=== PATIENT | female | born 1970 | race Caucasian/White ===

== ENCOUNTER 2022-06-27 16:48 | Inpatient (IN) | payer BC ==
[~2022-06-27] VITALS: Ht 153.7 cm; Wt 61.0 kg
[2022-06-27] MEDS ORDERED: ACETAMINOPHEN 500 MG TABLET PO ONE (17:15)
[2022-06-27] MEDS ORDERED: MORPHINE SULFATE 2 MG/ML SYRINGE IVP ONE (17:15)
[2022-06-27] MEDS ORDERED: FAMOTIDINE 10 MG/ML 2 ML VIAL IVP ONE (17:15)
[2022-06-27] MEDS ORDERED: ONDANSETRON HCL 4 MG/2 ML VIAL IVP ONE (17:15)
[2022-06-27] MEDS ORDERED: MAG HYDROX/AL HYDROX/SIMETH 30 ML SUSP UDCUP PO ONE (17:15)
[2022-06-27] MEDS ORDERED: SODIUM CHLORIDE 0.9% 1,000 ML IV ONE ×2 (17:15→19:15)
[2022-06-27 17:27] LABS: COVID AG,FIA SOURCE NASOPHARYNGEAL
[2022-06-27 17:44] LABS: INFLUENZA TYPE A NEGATIVE FOR TYPE A (NEGATIVE); INFLUENZA TYPE B NEGATIVE FOR TYPE B (NEGATIVE)
[2022-06-27] MEDS ORDERED: IOHEXOL 350 MG/ML 100 ML VIAL ONE (18:01)
[2022-06-27] MEDS ORDERED: SODIUM CHLORIDE 0.9% 0 ML ONE (18:02)
[2022-06-27 18:07] LABS: HEMATOCRIT 33.2 % (36-46); HEMOGLOBIN 10.2 g/dL (12.0-16.0); MEAN CORPUSCULAR HEMOGLOBIN 23.5 pg (26.0-34.0); MEAN CORPUSCULAR HGB CONC 30.6 G/dL (31.0-37.0); MEAN CORPUSCULAR VOLUME 77 fL (80-100); PLATELET COUNT (AUTO) 367 K/uL (150-450); RED BLOOD CELL COUNT(AUTO) 4.32 MIL/uL (4.00-5.20); RED CELL DISTRIBUTION WIDTH 17.3 % (11.5-14.5)
[2022-06-27 18:14] LABS: ANION GAP 16 mmol/L (8-16); CALCIUM, TOTAL 9.4 mg/dL (8.8-10.5); CARBON DIOXIDE 23 mmol/L (22-29); CHLORIDE 100 mmol/L (98-107); CREATININE 2.29 mg/dL (0.60-1.30); GLOMERULAR FILTR. RATE CALC 22 mL/min (>60); GLUCOSE,RANDOM 110 mg/dL (70-110); POTASSIUM 3.2 mmol/L (3.5-5.1); SODIUM SERUM 139 mmol/L (136-145)
[2022-06-27 18:21] LABS: INR 1.6 (0.9-1.1); PROTHROMBIN TIME 16.5 SEC (9.4-11.6)
[2022-06-27 18:28] LABS: B-TYPE NATRIURETIC PEPTIDE 190 pg/mL (0-100)
[2022-06-27 18:28] LABS: APPEARANCE,URINE HAZY (CLEAR); BILIRUBIN,URINE NEGATIVE (NEGATIVE); GLUCOSE, URINE (UA) TRACE mg/dL (NEGATIVE); KETONES,URINE NEGATIVE (NEGATIVE); LEUKOCYTE ESTERASE ,URINE SMALL (NEGATIVE); NITRATE,URINE NEGATIVE (NEGATIVE); OCCULT BLOOD,URINE TRACE (NEGATIVE); PROTEIN,URINE 100-200,SEE CONFIRM mg/dL (NEGATIVE); SPECIFIC GRAVITIY, URINE 1.029 (1.003-1.030); UROBILINOGEN,URINE <=1.0 mg/dL (<=1.0)
[2022-06-27 18:29] LABS: BAND NEUTROPHILS % (MANUAL) 13 % (0-5); LYMPHOCYTES % (MANUAL) 6 % (22-44); MONOCYTES % (MANUAL) 4 % (2-9); SEGMENTED NEUTROPHILS % 77 % (40-70)
[2022-06-27 18:30] LABS: PLATELET MORPHOLOGY COMMENT LARGE PLTS PRESENT
[2022-06-27 18:35] LABS: AMPHET/METH SCREEN,URINE POSITIVE (NEGATIVE); BARBITURATE SCREEN, URINE NEGATIVE (NEGATIVE); BENZODIAZEPINES SCREEN,URINE POSITIVE (NEGATIVE); CANNABINOID SCREEN,URINE NEGATIVE (NEGATIVE); COCAINE SCREEN,URINE POSITIVE (NEGATIVE); METHADONE SCREEN, URINE POSITIVE (NEGATIVE); OPIATE SCREEN,URINE NEGATIVE (NEGATIVE); PHENCYCLIDINE SCREEN,URINE NEGATIVE (NEGATIVE)
[2022-06-27 18:36] LABS: SULFOSALICYLIC ACID,URINE 2+ (Negative)
[2022-06-27 18:37] LABS: BACTERIA,URINE Few /HPF (None Seen); FINE GRANULAR CASTS,URINE 0-2 /LPF (None Seen); SQUAMOUS EPITHELIAL CELL,UR Moderate /LPF (None Seen)
[2022-06-27 18:38] LABS: ALANINE AMINOTRANSFERASE 9 U/L (12-78); ALBUMIN 2.8 g/dL (3.4-5.0); ALKALINE PHOSPHATASE 90 U/L (46-116); ASPARTATE AMINOTRANSFERASE 14 U/L (15-37); BILIRUBIN,TOTAL 0.1 mg/dL (0.1-1.0); CREATINE KINASE, TOTAL ONLY 89 U/L (26-192); LIPASE 15 U/L (73-393); TOTAL PROTEIN, SERUM 8.7 g/dL (6.4-8.2)
[2022-06-27] MEDS ORDERED: PIPERACILLIN/TAZO 3.375 GM/D5W 50 ML IV ONE (18:45)
[2022-06-27] MEDS ORDERED: VANCOMYCIN 1GM/WATER(PEG/NADA) 200 ML IV ONE (18:45)
[2022-06-27] MEDS ORDERED: AZITHROMYCIN 500 MG/NS 250 ML IV ONE (18:45)
[2022-06-27 19:11] LABS: LACTIC ACID 2.9 mmol/L (0.4-2.0)
[2022-06-27] MEDS ORDERED: INSULIN LISPRO 100 UNITS/ML SQ PRN (19:15)
[2022-06-27] MEDS ORDERED: POTASSIUM CHLORIDE 10% 40 MEQ/30 ML LIQUID UDCUP PO ONE (19:15)
[2022-06-27] MEDS ORDERED: DEXTROSE 50%-WATER 25 GM/50 ML SYRINGE IVP PRN (19:15)
[2022-06-27] MEDS: RINGERS SOLUTION,LACTATED 1,000 ML IV SCH (19:30)
[2022-06-27] MEDS ORDERED: *CLINICAL-CEFEPIME DOSING CLINICAL ONE (21:00)
[2022-06-27] MEDS: HYDROmorphone HCL 2 MG/ML SYRINGE IVP PRN (21:07)
[2022-06-27] MEDS ORDERED: PENTETATE DTPA TC99M/MCL ISOTOPE 1 EA INJ INJ ONE (21:20)
[2022-06-27] MEDS ORDERED: MAA ALBUMIN AGGREGATED TC99M/UD<10MCL ISOTOPE 1 EA INJ INJ ONE (21:40)
[2022-06-27] MEDS ORDERED: CEFEPIME HCL 2 GM in DEXTROSE 5%-WATER 50 ML IV ONE (22:00)
[2022-06-27] MEDS ORDERED: RINGERS SOLUTION,LACTATED 1,000 ML IV ONE (22:00)
[2022-06-28] MEDS: HYDROmorphone HCL 2 MG/ML SYRINGE IVP PRN ×4 (00:20→20:29)
[2022-06-28] MEDS ORDERED: HYDROmorphone HCL 2 MG/ML SYRINGE IVP ONE (01:15)
[2022-06-28] MEDS: RINGERS SOLUTION,LACTATED 1,000 ML IV SCH (05:01)
[2022-06-28] MEDS: ALBUTEROL SULFATE 2.5 MG/0.5 ML NEB SOLUTION NEB PRN ×3 (05:01→20:55)
[2022-06-28 06:11] LABS: BASOPHILS % (AUTO) 0.1 % (0.0-2.0); EOSINOPHILS % (AUTO) 0 % (1.0-6.0); HEMOGLOBIN 8.4 g/dL (12.0-16.0); LYMPHOCYTES # (AUTO) 0.6 K/uL (1.0-4.8); LYMPHOCYTES % (AUTO) 3.1 % (22.0-44.0); MEAN CORPUSCULAR HEMOGLOBIN 23.7 pg (26.0-34.0); MEAN CORPUSCULAR HGB CONC 31.3 G/dL (31.0-37.0); MEAN CORPUSCULAR VOLUME 76 fL (80-100); MONOCYTES # (AUTO) 0.3 K/uL (0.1-1.0); MONOCYTES % (AUTO) 1.6 % (2.0-9.0); NEUTROPHILS # (AUTO) 18.7 K/uL (1.8-7.7); PLATELET COUNT (AUTO) 296 K/uL (150-450); RED BLOOD CELL COUNT(AUTO) 3.56 MIL/uL (4.00-5.20); RED CELL DISTRIBUTION WIDTH 17.3 % (11.5-14.5)
[2022-06-28 06:21] LABS: CALCIUM, TOTAL 8.2 mg/dL (8.8-10.5); CREATININE 1.43 mg/dL (0.60-1.30); MAGNESIUM 1.7 mg/dL (1.80-2.40); POTASSIUM 3.5 mmol/L (3.5-5.1)
[2022-06-28 06:51] LABS: NEUTROPHILS % (AUTO) 95.2 % (40.0-70.0)
[2022-06-28] MEDS ORDERED: VANCOMYCIN HCL 750 MG in DEXTROSE 5%-WATER 250 ML IV SCH (08:00)
[2022-06-28 10:36] VITALS: BP 139/79
[2022-06-28] MEDS: ACETAMINOPHEN 325 MG TABLET PO PRN ×2 (10:51→21:34)
[2022-06-28] MEDS: CEFEPIME HCL 1 GM in DEXTROSE 5%-WATER 50 ML IV SCH ×2 (10:52→23:09)
[2022-06-28] MEDS ORDERED: METHADONE HCL 10 MG TABLET PO SCH (11:00)
[2022-06-28 12:21] VITALS: BP 107/51
[2022-06-28 16:00] VITALS: BP 137/76
[2022-06-28] MEDS: NICOTINE 21 MG/24 HOUR PATCH TD SCH (16:56)
[2022-06-28] MEDS ORDERED: MAGNESIUM OXIDE 400 MG TABLET PO ONE (20:00)
[2022-06-28] MEDS ORDERED: BENZONATATE 100 MG CAPSULE PO PRN (20:00)
[2022-06-28] MEDS: MICONAZOLE NITRATE 200 MG VAGINAL SUPP [3] VG SCH (20:20)
[2022-06-28] MEDS: VANCOMYCIN HCL 500 MG in DEXTROSE 5%-WATER 100 ML IV SCH (20:29)
[2022-06-28 20:39] VITALS: BP 166/90
[2022-06-28] MEDS ORDERED: CEFEPIME HCL 1 GM in DEXTROSE 5%-WATER 50 ML IV SCH (22:00)
[2022-06-28] MEDS: QUEtiapine FUMARATE 100 MG TABLET PO SCH (22:33)
[2022-06-29 01:00] VITALS: BP 129/72
[2022-06-29] MEDS ORDERED: HYDROmorphone HCL 2 MG/ML SYRINGE IVP PRN (01:15)
[2022-06-29] MEDS: HYDROmorphone HCL 2 MG/ML SYRINGE IVP PRN ×3 (01:24→15:35)
[2022-06-29 01:30] LABS: CREATININE,URINE RANDOM 33.4 mg/dL (30.0-125.0)
[2022-06-29] MEDS: RINGERS SOLUTION,LACTATED 1,000 ML IV SCH ×3 (04:20→20:06)
[2022-06-29] MEDS: ALBUTEROL SULFATE 2.5 MG/0.5 ML NEB SOLUTION NEB PRN (04:42)
[2022-06-29 05:25] LABS: ABG CARBOXYHEMOGLOBIN 0.2 % (0.0-1.5); ABG HCO3 25.8 mmol/L (22.0-26.0); ABG METHEMOGLOBIN 0.1 % (0.0-1.5); ABG OXYGEN CONTENT 10.7 mL/dL (15.0-23.0); ABG OXYHEMOGLOBIN 83.9 % (94.0-100.0); ABG PCO2 45 mmHg (35-45); ABG PH 7.394 (7.35-7.450); PO2, ARTERIAL BG 47.7 mmHg (84.0-92.0); SOURCE, BLOOD GAS ARTERIAL; TEMPERATURE, FAHRENHEIT, BG 97.5 FAHREN (96.0-98.6)
[2022-06-29 05:28] LABS: ABG OXYGEN SATURATION 84.2 % (95.0-98.0); SITE, BLOOD GAS RT BRACHIAL
[2022-06-29 05:29] LABS: O2 DEVICE,BLOOD GAS NRB (ROOM AIR)
[2022-06-29 05:30] LABS: ABG A-A DIFF O2 621.8 mmHg (10-20.0)
[2022-06-29] MEDS ORDERED: HYDROCORTISONE SOD SUCC 100 MG/2 ML VIAL IVP SCH (08:00)
[2022-06-29] MEDS: DEXMEDETOMIDINE HCL 400 MCG in SODIUM CHLORIDE 0.9% 96 ML IV PRN ×2 (09:00→15:12)
[2022-06-29] MEDS: VANCOMYCIN HCL 500 MG in DEXTROSE 5%-WATER 100 ML IV SCH ×2 (09:10→20:04)
[2022-06-29] MEDS ORDERED: SODIUM CHLORIDE 0.9% 250 ML IV ONE (09:11)
[2022-06-29] MEDS ORDERED: METHADONE HCL 10 MG TABLET PO ONE (10:45)
[2022-06-29] MEDS: NICOTINE 21 MG/24 HOUR PATCH TD SCH (10:46)
[2022-06-29 10:58] LABS: ABG A-A DIFF O2 622.9 mmHg (10-20.0); ABG CARBOXYHEMOGLOBIN 0.3 % (0.0-1.5); ABG HCO3 24.4 mmol/L (22.0-26.0); ABG METHEMOGLOBIN 0.3 % (0.0-1.5); ABG OXYGEN CONTENT 10.8 mL/dL (15.0-23.0); ABG OXYGEN SATURATION 88.2 % (95.0-98.0); ABG OXYHEMOGLOBIN 87.7 % (94.0-100.0); ABG PCO2 37 mmHg (35-45); ABG PH 7.431 (7.35-7.450); ABG TOTAL HEMOGLOBIN 8.7 G/dL (12.0-18.0); O2 DEVICE,BLOOD GAS HI FL CANNULA (ROOM AIR); PO2, ARTERIAL BG 53.1 mmHg (84.0-92.0); SITE, BLOOD GAS RT RADIAL; SOURCE, BLOOD GAS ARTERIAL; TEMPERATURE, FAHRENHEIT, BG 98.4 FAHREN (96.0-98.6)
[2022-06-29] MEDS: CEFEPIME HCL 1 GM in DEXTROSE 5%-WATER 50 ML IV SCH ×2 (11:30→22:05)
[2022-06-29 12:00] VITALS: BP 149/81
[2022-06-29 16:00] VITALS: BP 128/67
[2022-06-29] MEDS ORDERED: ROCURONIUM BROMIDE 10 MG/ML 5 ML VIAL IVP ONE (17:30)
[2022-06-29] MEDS: FentaNYL CIT 1000MCG/0.9% NACL 100 ML IV PRN (17:30)
[2022-06-29] MEDS: PROPOFOL 1000 MG/ISO-OSM 100 ML IV PRN ×2 (17:30→22:13)
[2022-06-29] MEDS ORDERED: ETOMIDATE 2 MG/ML 10 ML VIAL IVP ONE (17:30)
[2022-06-29 19:57] LABS: ABG BASE EXCESS -1.7 mmol/L (-2.0-3.0); ABG CARBOXYHEMOGLOBIN 0.5 % (0.0-1.5); ABG METHEMOGLOBIN 0.3 % (0.0-1.5); ABG OXYGEN CONTENT 10.4 mL/dL (15.0-23.0); ABG OXYGEN SATURATION 89.2 % (95.0-98.0); ABG OXYHEMOGLOBIN 88.5 % (94.0-100.0); ABG PCO2 48 mmHg (35-45); ABG PH 7.323 (7.35-7.450); ABG TOTAL HEMOGLOBIN 8.3 G/dL (12.0-18.0); SOURCE, BLOOD GAS ARTERIAL; TEMPERATURE, FAHRENHEIT, BG 102.4 FAHREN (96.0-98.6)
[2022-06-29 19:58] LABS: ABG A-A DIFF O2 589.1 mmHg (10-20.0); O2 DEVICE,BLOOD GAS VENT (ROOM AIR); PEEP,BG 5 cm H2O; SITE, BLOOD GAS RT RADIAL; VT, ABG 450 ml
[2022-06-29 20:00] VITALS: BP 113/71
[2022-06-29] MEDS: ACETAMINOPHEN 325 MG TABLET PO PRN (20:05)
[2022-06-29] MEDS: MIDAZOLAM HCL 100 MG in SODIUM CHLORIDE 0.9% 180 ML IV PRN (20:25)
[2022-06-29] MEDS: QUEtiapine FUMARATE 100 MG TABLET PO SCH (21:00)
[2022-06-29] MEDS: MICONAZOLE NITRATE 200 MG VAGINAL SUPP [3] VG SCH (21:00)
[2022-06-30] VITALS (8 sets, daily range): BP systolic 73–101; BP diastolic 47–69
[2022-06-30] MEDS: FentaNYL CIT 1000MCG/0.9% NACL 100 ML IV PRN ×2 (00:35→14:56)
[2022-06-30] MEDS: ACETAMINOPHEN 325 MG TABLET PO PRN ×4 (02:54→20:42)
[2022-06-30 05:25] LABS: BASOPHILS % (AUTO) 0.5 % (0.0-2.0); EOSINOPHILS % (AUTO) 2.1 % (1.0-6.0); HEMATOCRIT 23.4 % (36-46); HEMOGLOBIN 7.4 g/dL (12.0-16.0); LYMPHOCYTES # (AUTO) 1.2 K/uL (1.0-4.8); LYMPHOCYTES % (AUTO) 13.5 % (22.0-44.0); MEAN CORPUSCULAR HEMOGLOBIN 23.7 pg (26.0-34.0); MEAN CORPUSCULAR HGB CONC 31.4 G/dL (31.0-37.0); MEAN CORPUSCULAR VOLUME 75 fL (80-100); MONOCYTES # (AUTO) 0.4 K/uL (0.1-1.0); MONOCYTES % (AUTO) 4.7 % (2.0-9.0); NEUTROPHILS # (AUTO) 7.1 K/uL (1.8-7.7); NEUTROPHILS % (AUTO) 79.2 % (40.0-70.0); PLATELET COUNT (AUTO) 268 K/uL (150-450); RED BLOOD CELL COUNT(AUTO) 3.11 MIL/uL (4.00-5.20); RED CELL DISTRIBUTION WIDTH 17.6 % (11.5-14.5)
[2022-06-30 05:34] LABS: ANION GAP 7 mmol/L (8-16); CALCIUM, TOTAL 8.2 mg/dL (8.8-10.5); CARBON DIOXIDE 26 mmol/L (22-29); CHLORIDE 103 mmol/L (98-107); CREATININE 0.82 mg/dL (0.60-1.30); GLOMERULAR FILTR. RATE CALC > 60 mL/min (>60); GLUCOSE,RANDOM 77 mg/dL (70-110); POTASSIUM 3.3 mmol/L (3.5-5.1); SODIUM SERUM 136 mmol/L (136-145)
[2022-06-30] MEDS: RINGERS SOLUTION,LACTATED 1,000 ML IV SCH ×2 (06:15→15:57)
[2022-06-30] MEDS: VANCOMYCIN HCL 500 MG in DEXTROSE 5%-WATER 100 ML IV SCH ×3 (07:19→23:47)
[2022-06-30] MEDS: NICOTINE 21 MG/24 HOUR PATCH TD SCH (09:19)
[2022-06-30] MEDS: METHADONE HCL 10 MG TABLET PO SCH (09:19)
[2022-06-30] MEDS: CEFEPIME HCL 2 GM in DEXTROSE 5%-WATER 50 ML IV SCH ×2 (10:53→23:07)
[2022-06-30] MEDS: DOXYCYCLINE HYCLATE 100 MG in DEXTROSE 5%-WATER 100 ML IV SCH (12:07)
[2022-06-30] MEDS: PROPOFOL 1000 MG/ISO-OSM 100 ML IV PRN (12:59)
[2022-06-30] MEDS ORDERED: ETOMIDATE 2 MG/ML 10 ML VIAL IV ONE (16:56)
[2022-06-30] MEDS ORDERED: MAGNESIUM SULFATE 4 GM/WATER 100 ML IV PRN (17:30)
[2022-06-30] MEDS ORDERED: POTASSIUM CHLORIDE 20 MEQ ER TABLET PO PRN (17:30)
[2022-06-30] MEDS ORDERED: MAGNESIUM OXIDE 400 MG TABLET PO PRN (17:30)
[2022-06-30] MEDS ORDERED: MAGNESIUM SULFATE 2 GM/WATER 50 ML IV PRN (17:30)
[2022-06-30] MEDS ORDERED: MAGNESIUM CARBONATE 1 GM/5 ML LIQUID 22 ML UDCUP NG PRN (17:30)
[2022-06-30] MEDS: POTASSIUM CHLORIDE 10% 40 MEQ/30 ML LIQUID UDCUP NG PRN ×2 (17:31→20:39)
[2022-06-30] MEDS: DEXMEDETOMIDINE HCL 400 MCG in SODIUM CHLORIDE 0.9% 96 ML IV PRN (18:44)
[2022-06-30] MEDS: PANTOPRAZOLE SODIUM 40 MG/VIAL IVP SCH (20:39)
[2022-06-30] MEDS: QUEtiapine FUMARATE 100 MG TABLET PO SCH (20:40)
[2022-06-30] MEDS ORDERED: SODIUM CHLORIDE 0.9% 250 ML IV ONE (21:07)
[2022-06-30] MEDS: ETHYL ALCOHOL 62% ANTISEPTIC NASAL SANITIZER 0.6 ML AMPUL NASAL SCH (21:09)
[2022-06-30] MEDS: MICONAZOLE NITRATE 200 MG VAGINAL SUPP [3] VG SCH (21:10)
[2022-07-01] VITALS: BP 80/45
[2022-07-01] MEDS: DOXYCYCLINE HYCLATE 100 MG in DEXTROSE 5%-WATER 100 ML IV SCH ×2 (00:54→11:59)
[2022-07-01] MEDS: RINGERS SOLUTION,LACTATED 1,000 ML IV SCH ×3 (02:12→22:23)
[2022-07-01] MEDS: PROPOFOL 1000 MG/ISO-OSM 100 ML IV PRN (02:13)
[2022-07-01 04:00] VITALS: BP 95/59
[2022-07-01 04:58] LABS: BASOPHILS % (AUTO) 0.8 % (0.0-2.0); EOSINOPHILS % (AUTO) 2.8 % (1.0-6.0); HEMATOCRIT 21.9 % (36-46); LYMPHOCYTES # (AUTO) 1.5 K/uL (1.0-4.8); LYMPHOCYTES % (AUTO) 16.7 % (22.0-44.0); MEAN CORPUSCULAR HGB CONC 31.3 G/dL (31.0-37.0); MEAN CORPUSCULAR VOLUME 77 fL (80-100); MONOCYTES # (AUTO) 0.7 K/uL (0.1-1.0); MONOCYTES % (AUTO) 8.1 % (2.0-9.0); NEUTROPHILS # (AUTO) 6.4 K/uL (1.8-7.7); NEUTROPHILS % (AUTO) 71.6 % (40.0-70.0); PLATELET COUNT (AUTO) 234 K/uL (150-450); RED BLOOD CELL COUNT(AUTO) 2.86 MIL/uL (4.00-5.20); RED CELL DISTRIBUTION WIDTH 17.7 % (11.5-14.5)
[2022-07-01 05:03] LABS: HEMOGLOBIN 6.9 g/dL (12.0-16.0)
[2022-07-01 05:04] LABS: ANION GAP 8 mmol/L (8-16); CARBON DIOXIDE 23 mmol/L (22-29); CHLORIDE 105 mmol/L (98-107); CREATININE 0.73 mg/dL (0.60-1.30); GLUCOSE,RANDOM 79 mg/dL (70-110); POTASSIUM 4.5 mmol/L (3.5-5.1); SODIUM SERUM 136 mmol/L (136-145)
[2022-07-01 05:05] LABS: CALCIUM, TOTAL 8.1 mg/dL (8.8-10.5); GLOMERULAR FILTR. RATE CALC > 60 mL/min (>60)
[2022-07-01] MEDS: DEXMEDETOMIDINE HCL 400 MCG in SODIUM CHLORIDE 0.9% 96 ML IV PRN ×3 (06:06→23:30)
[2022-07-01] MEDS: FentaNYL CIT 1000MCG/0.9% NACL 100 ML IV PRN ×2 (06:07→19:27)
[2022-07-01 08:00] VITALS: BP 97/55
[2022-07-01] MEDS: VANCOMYCIN HCL 500 MG in DEXTROSE 5%-WATER 100 ML IV SCH ×2 (08:53→15:38)
[2022-07-01] MEDS: PANTOPRAZOLE SODIUM 40 MG/VIAL IVP SCH ×2 (08:53→21:06)
[2022-07-01] MEDS: ETHYL ALCOHOL 62% ANTISEPTIC NASAL SANITIZER 0.6 ML AMPUL NASAL SCH ×2 (08:54→21:05)
[2022-07-01] MEDS: METHADONE HCL 10 MG TABLET PO SCH (08:54)
[2022-07-01] MEDS: NICOTINE 21 MG/24 HOUR PATCH TD SCH (08:54)
[2022-07-01] MEDS: ACETAMINOPHEN 325 MG TABLET PO PRN ×3 (09:01→21:06)
[2022-07-01] MEDS: CEFEPIME HCL 2 GM in DEXTROSE 5%-WATER 50 ML IV SCH ×2 (11:07→22:22)
[2022-07-01 12:00] VITALS: BP 94/57
[2022-07-01 16:00] VITALS: BP 96/65
[2022-07-01 20:00] VITALS: BP 99/58
[2022-07-01] MEDS: QUEtiapine FUMARATE 100 MG TABLET PO SCH (21:06)
[2022-07-01] MEDS: MICONAZOLE NITRATE 200 MG VAGINAL SUPP [3] VG SCH (21:06)
[2022-07-01] MEDS ORDERED: SODIUM CHLORIDE 0.9% 250 ML IV ONE (22:20)
[2022-07-02] VITALS (13 sets, daily range): BP systolic 101–149; BP diastolic 60–89
[2022-07-02] MEDS: VANCOMYCIN HCL 500 MG in DEXTROSE 5%-WATER 100 ML IV SCH ×3 (00:31→17:19)
[2022-07-02] MEDS: DOXYCYCLINE HYCLATE 100 MG in DEXTROSE 5%-WATER 100 ML IV SCH ×2 (00:34→11:51)
[2022-07-02] MEDS: PROPOFOL 1000 MG/ISO-OSM 100 ML IV PRN ×2 (05:00→21:43)
[2022-07-02] MEDS: ACETAMINOPHEN 325 MG TABLET PO PRN ×4 (05:01→21:39)
[2022-07-02] MEDS: FentaNYL CIT 1000MCG/0.9% NACL 100 ML IV PRN ×2 (05:01→21:42)
[2022-07-02] MEDS: ETHYL ALCOHOL 62% ANTISEPTIC NASAL SANITIZER 0.6 ML AMPUL NASAL SCH ×2 (08:02→21:38)
[2022-07-02] MEDS: RINGERS SOLUTION,LACTATED 1,000 ML IV SCH ×2 (08:02→19:42)
[2022-07-02] MEDS: PANTOPRAZOLE SODIUM 40 MG/VIAL IVP SCH ×2 (08:02→21:38)
[2022-07-02] MEDS: METHADONE HCL 10 MG TABLET PO SCH (08:03)
[2022-07-02] MEDS: NICOTINE 21 MG/24 HOUR PATCH TD SCH (08:04)
[2022-07-02] MEDS: DEXMEDETOMIDINE HCL 400 MCG in SODIUM CHLORIDE 0.9% 96 ML IV PRN ×2 (08:05→18:44)
[2022-07-02 08:46] LABS: BASOPHILS % (AUTO) 0.5 % (0.0-2.0); EOSINOPHILS % (AUTO) 1.7 % (1.0-6.0); LYMPHOCYTES # (AUTO) 0.9 K/uL (1.0-4.8); LYMPHOCYTES % (AUTO) 12.7 % (22.0-44.0); MEAN CORPUSCULAR HGB CONC 31.9 G/dL (31.0-37.0); MEAN CORPUSCULAR VOLUME 75 fL (80-100); MONOCYTES # (AUTO) 0.5 K/uL (0.1-1.0); MONOCYTES % (AUTO) 7.6 % (2.0-9.0); NEUTROPHILS # (AUTO) 5.4 K/uL (1.8-7.7); NEUTROPHILS % (AUTO) 77.5 % (40.0-70.0); PLATELET COUNT (AUTO) 235 K/uL (150-450); RED BLOOD CELL COUNT(AUTO) 2.69 MIL/uL (4.00-5.20); RED CELL DISTRIBUTION WIDTH 17.7 % (11.5-14.5)
[2022-07-02 08:50] LABS: HEMOGLOBIN 6.5 g/dL (12.0-16.0)
[2022-07-02 08:51] LABS: HEMATOCRIT 20.2 % (36-46)
[2022-07-02 09:09] LABS: ANION GAP 9 mmol/L (8-16); CARBON DIOXIDE 24 mmol/L (22-29); CHLORIDE 105 mmol/L (98-107); CREATININE 0.62 mg/dL (0.60-1.30); GLOMERULAR FILTR. RATE CALC > 60 mL/min (>60); GLUCOSE,RANDOM 79 mg/dL (70-110); POTASSIUM 3.7 mmol/L (3.5-5.1); SODIUM SERUM 138 mmol/L (136-145); VANCOMYCIN,RANDOM 14.4 mcg/mL (25.0-50.0)
[2022-07-02] MEDS ORDERED: SODIUM CHLORIDE 0.9% 250 ML IV ONE (09:27)
[2022-07-02] MEDS: CEFEPIME HCL 2 GM in DEXTROSE 5%-WATER 50 ML IV SCH (11:51)
[2022-07-02] MEDS: LEVOFLOXACIN 750 MG/D5% WATER 150 ML IV SCH (15:58)
[2022-07-02] MEDS: QUEtiapine FUMARATE 100 MG TABLET PO SCH (21:39)
[2022-07-03] VITALS: BP 112/74
[2022-07-03] MEDS: VANCOMYCIN HCL 500 MG in DEXTROSE 5%-WATER 100 ML IV SCH (00:36)
[2022-07-03] MEDS: DEXMEDETOMIDINE HCL 400 MCG in SODIUM CHLORIDE 0.9% 96 ML IV PRN ×3 (02:01→21:16)
[2022-07-03] MEDS: FentaNYL CIT 1000MCG/0.9% NACL 100 ML IV PRN ×4 (03:15→20:44)
[2022-07-03] MEDS: PROPOFOL 1000 MG/ISO-OSM 100 ML IV PRN ×5 (03:16→23:58)
[2022-07-03 04:00] VITALS: BP 109/69
[2022-07-03 05:44] LABS: BASOPHILS % (AUTO) 0.7 % (0.0-2.0); EOSINOPHILS % (AUTO) 2.8 % (1.0-6.0); HEMATOCRIT 27.3 % (36-46); HEMOGLOBIN 8.9 g/dL (12.0-16.0); LYMPHOCYTES # (AUTO) 0.9 K/uL (1.0-4.8); LYMPHOCYTES % (AUTO) 12.5 % (22.0-44.0); MEAN CORPUSCULAR HEMOGLOBIN 25.3 pg (26.0-34.0); MEAN CORPUSCULAR HGB CONC 32.5 G/dL (31.0-37.0); MEAN CORPUSCULAR VOLUME 78 fL (80-100); MONOCYTES # (AUTO) 0.5 K/uL (0.1-1.0); MONOCYTES % (AUTO) 6.5 % (2.0-9.0); NEUTROPHILS # (AUTO) 5.5 K/uL (1.8-7.7); NEUTROPHILS % (AUTO) 77.5 % (40.0-70.0); PLATELET COUNT (AUTO) 257 K/uL (150-450); RED CELL DISTRIBUTION WIDTH 18.5 % (11.5-14.5)
[2022-07-03 05:55] LABS: ANION GAP 9 mmol/L (8-16); CALCIUM, TOTAL 8.4 mg/dL (8.8-10.5); CARBON DIOXIDE 25 mmol/L (22-29); CHLORIDE 107 mmol/L (98-107); CREATININE 0.52 mg/dL (0.60-1.30); GLOMERULAR FILTR. RATE CALC > 60 mL/min (>60); GLUCOSE,RANDOM 101 mg/dL (70-110); POTASSIUM 3.6 mmol/L (3.5-5.1); SODIUM SERUM 141 mmol/L (136-145); VANCOMYCIN,RANDOM 14.7 mcg/mL (25.0-50.0)
[2022-07-03] MEDS: RINGERS SOLUTION,LACTATED 1,000 ML IV SCH ×2 (05:56→15:17)
[2022-07-03 08:00] VITALS: BP 105/67
[2022-07-03] MEDS: VANCOMYCIN HCL 750 MG in DEXTROSE 5%-WATER 250 ML IV SCH ×2 (08:28→17:58)
[2022-07-03] MEDS: NICOTINE 21 MG/24 HOUR PATCH TD SCH (08:28)
[2022-07-03] MEDS: PANTOPRAZOLE SODIUM 40 MG/VIAL IVP SCH ×2 (08:29→22:20)
[2022-07-03] MEDS: ETHYL ALCOHOL 62% ANTISEPTIC NASAL SANITIZER 0.6 ML AMPUL NASAL SCH ×2 (08:30→22:20)
[2022-07-03] MEDS: METHADONE HCL 10 MG TABLET PO SCH (08:30)
[2022-07-03 09:02] LABS: PHOSPHORUS 4.7 mg/dL (2.5-4.9)
[2022-07-03 12:00] VITALS: BP 123/88
[2022-07-03] MEDS: MIDAZOLAM HCL 100 MG in SODIUM CHLORIDE 0.9% 180 ML IV PRN (12:55)
[2022-07-03 15:05] LABS: ABG CARBOXYHEMOGLOBIN 0.2 % (0.0-1.5); ABG HCO3 24.6 mmol/L (22.0-26.0); ABG METHEMOGLOBIN 0.3 % (0.0-1.5); ABG OXYGEN CONTENT 12.8 mL/dL (15.0-23.0); ABG OXYGEN SATURATION 94.1 % (95.0-98.0); ABG OXYHEMOGLOBIN 93.6 % (94.0-100.0); ABG PCO2 39 mmHg (35-45); ABG PH 7.418 (7.35-7.450); ABG TOTAL HEMOGLOBIN 9.7 G/dL (12.0-18.0); PO2, ARTERIAL BG 78.8 mmHg (84.0-92.0); SOURCE, BLOOD GAS ARTERIAL
[2022-07-03] MEDS: LEVOFLOXACIN 750 MG/D5% WATER 150 ML IV SCH (15:16)
[2022-07-03] MEDS: ALPRAZolam 0.25 MG TABLET PO SCH ×2 (15:17→22:20)
[2022-07-03] MEDS: ACETAMINOPHEN 325 MG TABLET PO PRN (15:18)
[2022-07-03 15:20] LABS: ABG A-A DIFF O2 340.1 mmHg (10-20.0); O2 DEVICE,BLOOD GAS VENTILATOR (ROOM AIR); PEEP,BG 5 cm H2O; SITE, BLOOD GAS RT RADIAL; VENT MODE, BG SIMV (ROOM AIR); VT, ABG 450 ml
[2022-07-03 15:21] LABS: PRESSURE SUPPORT, BG 10 cm H2O; SPONTANEOUS VT, BG 400 ml
[2022-07-03 16:00] VITALS: BP 97/57
[2022-07-03 20:00] VITALS: BP 104/59
[2022-07-03] MEDS: QUEtiapine FUMARATE 100 MG TABLET PO SCH (22:20)
[2022-07-04] VITALS: BP 89/53
[2022-07-04] MEDS: RINGERS SOLUTION,LACTATED 1,000 ML IV SCH ×2 (00:38→12:35)
[2022-07-04] MEDS: VANCOMYCIN HCL 750 MG in DEXTROSE 5%-WATER 250 ML IV SCH ×4 (00:40→23:46)
[2022-07-04] MEDS: FentaNYL CIT 1000MCG/0.9% NACL 100 ML IV PRN ×4 (03:07→21:02)
[2022-07-04 04:00] VITALS: BP 96/56
[2022-07-04] MEDS: DEXMEDETOMIDINE HCL 400 MCG in SODIUM CHLORIDE 0.9% 96 ML IV PRN ×3 (04:45→18:33)
[2022-07-04] MEDS: PROPOFOL 1000 MG/ISO-OSM 100 ML IV PRN ×4 (04:46→22:42)
[2022-07-04 07:33] LABS: BASOPHILS % (AUTO) 0.5 % (0.0-2.0); EOSINOPHILS % (AUTO) 3.2 % (1.0-6.0); HEMATOCRIT 23.5 % (36-46); HEMOGLOBIN 7.6 g/dL (12.0-16.0); LYMPHOCYTES # (AUTO) 1.1 K/uL (1.0-4.8); LYMPHOCYTES % (AUTO) 14.5 % (22.0-44.0); MEAN CORPUSCULAR HGB CONC 32.5 G/dL (31.0-37.0); MEAN CORPUSCULAR VOLUME 77 fL (80-100); MONOCYTES # (AUTO) 0.4 K/uL (0.1-1.0); NEUTROPHILS # (AUTO) 5.5 K/uL (1.8-7.7); NEUTROPHILS % (AUTO) 75.8 % (40.0-70.0); PLATELET COUNT (AUTO) 252 K/uL (150-450); RED BLOOD CELL COUNT(AUTO) 3.05 MIL/uL (4.00-5.20); RED CELL DISTRIBUTION WIDTH 18.4 % (11.5-14.5)
[2022-07-04 08:00] VITALS: BP 113/52
[2022-07-04 08:01] LABS: ALKALINE PHOSPHATASE 77 U/L (46-116); ANION GAP 5 mmol/L (8-16); ASPARTATE AMINOTRANSFERASE 17 U/L (15-37); BILIRUBIN,TOTAL 0.2 mg/dL (0.1-1.0); CALCIUM, TOTAL 7.6 mg/dL (8.8-10.5); CARBON DIOXIDE 27 mmol/L (22-29); CHLORIDE 105 mmol/L (98-107); CREATININE 0.54 mg/dL (0.60-1.30); GLOMERULAR FILTR. RATE CALC > 60 mL/min (>60); GLUCOSE,RANDOM 100 mg/dL (70-110); POTASSIUM 3.2 mmol/L (3.5-5.1); SODIUM SERUM 137 mmol/L (136-145); TOTAL PROTEIN, SERUM 5.8 g/dL (6.4-8.2)
[2022-07-04] MEDS: ALPRAZolam 0.25 MG TABLET PO SCH ×3 (08:17→20:32)
[2022-07-04] MEDS: PANTOPRAZOLE SODIUM 40 MG/VIAL IVP SCH ×2 (08:17→20:32)
[2022-07-04] MEDS: NICOTINE 21 MG/24 HOUR PATCH TD SCH (08:17)
[2022-07-04] MEDS: ACETAMINOPHEN 325 MG TABLET PO PRN ×3 (08:18→21:03)
[2022-07-04] MEDS: METHADONE HCL 10 MG TABLET PO SCH (08:18)
[2022-07-04] MEDS: ETHYL ALCOHOL 62% ANTISEPTIC NASAL SANITIZER 0.6 ML AMPUL NASAL SCH ×2 (08:19→20:32)
[2022-07-04 08:21] LABS: ALANINE AMINOTRANSFERASE 4 U/L (12-78)
[2022-07-04 12:08] VITALS: BP 100/67
[2022-07-04 16:00] VITALS: BP 89/56
[2022-07-04] MEDS ORDERED: SODIUM CHLORIDE 0.9% 250 ML IV ONE (16:55)
[2022-07-04] MEDS: LEVOFLOXACIN 750 MG/D5% WATER 150 ML IV SCH (16:57)
[2022-07-04 18:21] LABS: HEMATOCRIT 23.6 % (36-46); HEMOGLOBIN 7.7 g/dL (12.0-16.0)
[2022-07-04] MEDS: MEROPENEM 1 GM in SODIUM CHLORIDE 0.9% 100 ML IV SCH ×2 (18:29→23:46)
[2022-07-04 20:00] VITALS: BP 125/79
[2022-07-04] MEDS: QUEtiapine FUMARATE 100 MG TABLET PO SCH (20:34)
[2022-07-05] VITALS: BP 99/60
[2022-07-05 00:28] LABS: APPEARANCE,URINE CLEAR (CLEAR); BILIRUBIN,URINE NEGATIVE (NEGATIVE); GLUCOSE, URINE (UA) NEGATIVE (NEGATIVE); KETONES,URINE NEGATIVE (NEGATIVE); LEUKOCYTE ESTERASE ,URINE NEGATIVE (NEGATIVE); NITRATE,URINE NEGATIVE (NEGATIVE); OCCULT BLOOD,URINE NEGATIVE (NEGATIVE); PH,URINE 6.5 (5.0-8.0); PROTEIN,URINE NEGATIVE (NEGATIVE); SPECIFIC GRAVITIY, URINE 1.008 (1.003-1.030); UROBILINOGEN,URINE <=1.0 mg/dL (<=1.0)
[2022-07-05 00:41] LABS: GLUCOSE,POINT OF CARE 98 MG/DL (70-110)
[2022-07-05 01:00] LABS: BACTERIA,URINE None Seen /HPF (None Seen); RBC,URINE None Seen /HPF (0-2); SQUAMOUS EPITHELIAL CELL,UR None Seen /LPF (None Seen); WBC,URINE None Seen /HPF (0-5)
[2022-07-05] MEDS: DEXMEDETOMIDINE HCL 400 MCG in SODIUM CHLORIDE 0.9% 96 ML IV PRN ×3 (01:29→18:26)
[2022-07-05] MEDS: RINGERS SOLUTION,LACTATED 1,000 ML IV SCH ×2 (01:49→15:54)
[2022-07-05 04:00] VITALS: BP 121/82
[2022-07-05] MEDS: PROPOFOL 1000 MG/ISO-OSM 100 ML IV PRN ×4 (04:27→18:26)
[2022-07-05] MEDS: FentaNYL CIT 1000MCG/0.9% NACL 100 ML IV PRN ×4 (04:29→23:40)
[2022-07-05] MEDS: POTASSIUM CHLORIDE 10% 40 MEQ/30 ML LIQUID UDCUP NG PRN (04:38)
[2022-07-05] MEDS: ACETAMINOPHEN 325 MG TABLET PO PRN ×2 (05:04→15:55)
[2022-07-05 06:12] LABS: BASOPHILS % (AUTO) 0.3 % (0.0-2.0); EOSINOPHILS % (AUTO) 1.2 % (1.0-6.0); HEMATOCRIT 25.1 % (36-46); HEMOGLOBIN 8.1 g/dL (12.0-16.0); LYMPHOCYTES # (AUTO) 0.6 K/uL (1.0-4.8); LYMPHOCYTES % (AUTO) 6.2 % (22.0-44.0); MEAN CORPUSCULAR HEMOGLOBIN 25.3 pg (26.0-34.0); MEAN CORPUSCULAR HGB CONC 32.4 G/dL (31.0-37.0); MEAN CORPUSCULAR VOLUME 78 fL (80-100); MONOCYTES # (AUTO) 0.5 K/uL (0.1-1.0); PLATELET COUNT (AUTO) 239 K/uL (150-450); RED BLOOD CELL COUNT(AUTO) 3.21 MIL/uL (4.00-5.20)
[2022-07-05 06:30] LABS: ANION GAP 8 mmol/L (8-16); CALCIUM, TOTAL 8.2 mg/dL (8.8-10.5); CARBON DIOXIDE 26 mmol/L (22-29); CHLORIDE 107 mmol/L (98-107); GLOMERULAR FILTR. RATE CALC > 60 mL/min (>60); GLUCOSE,RANDOM 114 mg/dL (70-110); POTASSIUM 4.1 mmol/L (3.5-5.1); SODIUM SERUM 141 mmol/L (136-145); VANCOMYCIN,RANDOM 18.5 mcg/mL (25.0-50.0)
[2022-07-05 07:02] LABS: NEUTROPHILS % (AUTO) 87.3 % (40.0-70.0)
[2022-07-05 08:00] VITALS: BP 138/82
[2022-07-05] MEDS: PANTOPRAZOLE SODIUM 40 MG/VIAL IVP SCH ×2 (09:23→20:23)
[2022-07-05] MEDS: VANCOMYCIN HCL 750 MG in DEXTROSE 5%-WATER 250 ML IV SCH ×3 (09:23→23:40)
[2022-07-05] MEDS: MEROPENEM 1 GM in SODIUM CHLORIDE 0.9% 100 ML IV SCH ×3 (09:23→23:40)
[2022-07-05] MEDS: ALPRAZolam 0.25 MG TABLET PO SCH ×3 (09:24→20:23)
[2022-07-05] MEDS: NICOTINE 21 MG/24 HOUR PATCH TD SCH (09:24)
[2022-07-05] MEDS: METHADONE HCL 10 MG TABLET PO SCH (09:24)
[2022-07-05] MEDS: ETHYL ALCOHOL 62% ANTISEPTIC NASAL SANITIZER 0.6 ML AMPUL NASAL SCH ×2 (09:25→20:23)
[2022-07-05 12:00] VITALS: BP 123/67
[2022-07-05 12:21] LABS: GLUCOSE,POINT OF CARE 101 MG/DL (70-110)
[2022-07-05] MEDS: LEVOFLOXACIN 750 MG/D5% WATER 150 ML IV SCH (15:55)
[2022-07-05 16:00] VITALS: BP 188/115
[2022-07-05 20:00] VITALS: BP 109/67
[2022-07-05] MEDS: QUEtiapine FUMARATE 100 MG TABLET PO SCH (20:24)
[2022-07-05] MEDS ORDERED: SODIUM CHLORIDE 0.9% 250 ML IV ONE (23:14)
[2022-07-06] VITALS: BP 100/65
[2022-07-06] MEDS: PROPOFOL 1000 MG/ISO-OSM 100 ML IV PRN ×6 (00:50→22:26)
[2022-07-06] MEDS: DEXMEDETOMIDINE HCL 400 MCG in SODIUM CHLORIDE 0.9% 96 ML IV PRN ×3 (03:12→17:22)
[2022-07-06] MEDS: ALBUTEROL SULFATE 2.5 MG/0.5 ML NEB SOLUTION NEB PRN ×2 (03:36→22:52)
[2022-07-06 04:00] VITALS: BP 126/73
[2022-07-06] MEDS: RINGERS SOLUTION,LACTATED 1,000 ML IV SCH (05:19)
[2022-07-06] MEDS: FentaNYL CIT 1000MCG/0.9% NACL 100 ML IV PRN ×4 (05:49→18:34)
[2022-07-06 06:23] LABS: BASOPHILS % (AUTO) 0.3 % (0.0-2.0); EOSINOPHILS % (AUTO) 1.8 % (1.0-6.0); HEMATOCRIT 26.6 % (36-46); HEMOGLOBIN 8.4 g/dL (12.0-16.0); LYMPHOCYTES # (AUTO) 0.8 K/uL (1.0-4.8); LYMPHOCYTES % (AUTO) 7.4 % (22.0-44.0); MEAN CORPUSCULAR HEMOGLOBIN 24.5 pg (26.0-34.0); MEAN CORPUSCULAR HGB CONC 31.6 G/dL (31.0-37.0); MEAN CORPUSCULAR VOLUME 78 fL (80-100); MONOCYTES # (AUTO) 0.5 K/uL (0.1-1.0); MONOCYTES % (AUTO) 4.4 % (2.0-9.0); NEUTROPHILS # (AUTO) 9.6 K/uL (1.8-7.7); PLATELET COUNT (AUTO) 268 K/uL (150-450); RED BLOOD CELL COUNT(AUTO) 3.42 MIL/uL (4.00-5.20)
[2022-07-06 06:24] LABS: NEUTROPHILS % (AUTO) 86.1 % (40.0-70.0)
[2022-07-06 06:27] LABS: ANION GAP 7 mmol/L (8-16); CALCIUM, TOTAL 8.5 mg/dL (8.8-10.5); CARBON DIOXIDE 28 mmol/L (22-29); CHLORIDE 105 mmol/L (98-107); CREATININE 0.45 mg/dL (0.60-1.30); GLOMERULAR FILTR. RATE CALC > 60 mL/min (>60); GLUCOSE,RANDOM 112 mg/dL (70-110); POTASSIUM 3.8 mmol/L (3.5-5.1); SODIUM SERUM 140 mmol/L (136-145)
[2022-07-06 08:00] VITALS: BP 108/76
[2022-07-06] MEDS: VANCOMYCIN HCL 750 MG in DEXTROSE 5%-WATER 250 ML IV SCH ×2 (08:13→15:38)
[2022-07-06] MEDS: MEROPENEM 1 GM in SODIUM CHLORIDE 0.9% 100 ML IV SCH ×2 (08:13→15:39)
[2022-07-06] MEDS: NICOTINE 21 MG/24 HOUR PATCH TD SCH (08:15)
[2022-07-06] MEDS: ETHYL ALCOHOL 62% ANTISEPTIC NASAL SANITIZER 0.6 ML AMPUL NASAL SCH ×2 (08:15→20:08)
[2022-07-06] MEDS: METHADONE HCL 10 MG TABLET PO SCH (08:15)
[2022-07-06] MEDS: PANTOPRAZOLE SODIUM 40 MG/VIAL IVP SCH ×2 (08:15→20:09)
[2022-07-06] MEDS: ALPRAZolam 0.25 MG TABLET PO SCH ×3 (08:15→20:08)
[2022-07-06 12:00] VITALS: BP 101/65
[2022-07-06] MEDS: FUROSEMIDE 40 MG/4 ML VIAL IVP SCH (14:49)
[2022-07-06] MEDS ORDERED: SODIUM CHLORIDE 0.9% 250 ML IV ONE (15:27)
[2022-07-06] MEDS: LEVOFLOXACIN 750 MG/D5% WATER 150 ML IV SCH (15:38)
[2022-07-06 16:00] VITALS: BP 148/83
[2022-07-06 20:00] VITALS: BP 102/63
[2022-07-06] MEDS: QUEtiapine FUMARATE 100 MG TABLET PO SCH (20:08)
[2022-07-07] VITALS: BP 98/58
[2022-07-07] MEDS: FentaNYL CIT 1000MCG/0.9% NACL 100 ML IV PRN ×5 (00:02→17:05)
[2022-07-07] MEDS: MEROPENEM 1 GM in SODIUM CHLORIDE 0.9% 100 ML IV SCH ×3 (00:26→16:32)
[2022-07-07] MEDS: DEXMEDETOMIDINE HCL 400 MCG in SODIUM CHLORIDE 0.9% 96 ML IV PRN ×2 (00:26→08:42)
[2022-07-07] MEDS: VANCOMYCIN HCL 750 MG in DEXTROSE 5%-WATER 250 ML IV SCH ×3 (00:26→16:32)
[2022-07-07] MEDS: PROPOFOL 1000 MG/ISO-OSM 100 ML IV PRN ×5 (02:13→17:05)
[2022-07-07 04:00] VITALS: BP 98/60
[2022-07-07 08:00] VITALS: BP 113/71
[2022-07-07 09:05] LABS: BASOPHILS % (AUTO) 1.6 % (0.0-2.0); EOSINOPHILS % (AUTO) 4.5 % (1.0-6.0); HEMATOCRIT 25.6 % (36-46); HEMOGLOBIN 8.3 g/dL (12.0-16.0); LYMPHOCYTES # (AUTO) 1.2 K/uL (1.0-4.8); LYMPHOCYTES % (AUTO) 10.4 % (22.0-44.0); MEAN CORPUSCULAR HEMOGLOBIN 24.7 pg (26.0-34.0); MEAN CORPUSCULAR HGB CONC 32.4 G/dL (31.0-37.0); MEAN CORPUSCULAR VOLUME 76 fL (80-100); MONOCYTES # (AUTO) 0.4 K/uL (0.1-1.0); MONOCYTES % (AUTO) 3.8 % (2.0-9.0); NEUTROPHILS # (AUTO) 9.2 K/uL (1.8-7.7); NEUTROPHILS % (AUTO) 79.7 % (40.0-70.0); RED BLOOD CELL COUNT(AUTO) 3.35 MIL/uL (4.00-5.20); RED CELL DISTRIBUTION WIDTH 18.5 % (11.5-14.5)
[2022-07-07 09:32] LABS: PLATELET COUNT (AUTO) 270 K/uL (150-450)
[2022-07-07 09:35] LABS: ALANINE AMINOTRANSFERASE 8 U/L (12-78); ALBUMIN 1.2 g/dL (3.4-5.0); ALKALINE PHOSPHATASE 73 U/L (46-116); ANION GAP 7 mmol/L (8-16); ASPARTATE AMINOTRANSFERASE 37 U/L (15-37); BILIRUBIN,TOTAL 0.2 mg/dL (0.1-1.0); CARBON DIOXIDE 30 mmol/L (22-29); CHLORIDE 103 mmol/L (98-107); CREATININE 0.46 mg/dL (0.60-1.30); GLOMERULAR FILTR. RATE CALC > 60 mL/min (>60); GLUCOSE,RANDOM 107 mg/dL (70-110); POTASSIUM 3.7 mmol/L (3.5-5.1); SODIUM SERUM 140 mmol/L (136-145); TOTAL PROTEIN, SERUM 6.7 g/dL (6.4-8.2)
[2022-07-07] MEDS: ALPRAZolam 0.25 MG TABLET PO SCH ×3 (10:29→20:02)
[2022-07-07] MEDS: PANTOPRAZOLE SODIUM 40 MG/VIAL IVP SCH ×2 (10:29→21:00)
[2022-07-07] MEDS: METHADONE HCL 10 MG TABLET PO SCH (10:29)
[2022-07-07] MEDS: ETHYL ALCOHOL 62% ANTISEPTIC NASAL SANITIZER 0.6 ML AMPUL NASAL SCH ×2 (10:29→20:02)
[2022-07-07] MEDS: NICOTINE 21 MG/24 HOUR PATCH TD SCH (10:30)
[2022-07-07] MEDS: FUROSEMIDE 40 MG/4 ML VIAL IVP SCH ×2 (10:30→21:00)
[2022-07-07 12:00] VITALS: BP 110/71
[2022-07-07] MEDS ORDERED: KETAMINE HCL 500 MG in DEXTROSE 5%-WATER 490 ML IV PRN (15:00)
[2022-07-07 16:00] VITALS: BP 165/123
[2022-07-07] MEDS: LEVOFLOXACIN 750 MG/D5% WATER 150 ML IV SCH (16:32)
[2022-07-07 20:00] VITALS: BP 169/107
[2022-07-07] MEDS: QUEtiapine FUMARATE 100 MG TABLET PO SCH (20:02)
[2022-07-08] VITALS: BP 145/101
[2022-07-08 04:00] VITALS: BP 172/110
[2022-07-08] MEDS ORDERED: HALOPERIDOL LACTATE 5 MG/ML VIAL IM ONE (04:00)
[2022-07-08 05:36] LABS: BASOPHILS % (AUTO) 0.3 % (0.0-2.0); EOSINOPHILS % (AUTO) 0.2 % (1.0-6.0); HEMATOCRIT 25.7 % (36-46); HEMOGLOBIN 8.2 g/dL (12.0-16.0); LYMPHOCYTES # (AUTO) 0.5 K/uL (1.0-4.8); LYMPHOCYTES % (AUTO) 3.7 % (22.0-44.0); MEAN CORPUSCULAR HEMOGLOBIN 24.8 pg (26.0-34.0); MEAN CORPUSCULAR VOLUME 78 fL (80-100); MONOCYTES # (AUTO) 0.5 K/uL (0.1-1.0); MONOCYTES % (AUTO) 3.8 % (2.0-9.0); NEUTROPHILS # (AUTO) 12.5 K/uL (1.8-7.7); PLATELET COUNT (AUTO) 312 K/uL (150-450); RED BLOOD CELL COUNT(AUTO) 3.32 MIL/uL (4.00-5.20); RED CELL DISTRIBUTION WIDTH 18.6 % (11.5-14.5)
[2022-07-08] MEDS: PROPOFOL 1000 MG/ISO-OSM 100 ML IV PRN ×3 (05:44→15:36)
[2022-07-08 05:52] LABS: ALANINE AMINOTRANSFERASE 10 U/L (12-78); ALBUMIN 1.5 g/dL (3.4-5.0); ALKALINE PHOSPHATASE 82 U/L (46-116); ANION GAP 6 mmol/L (8-16); ASPARTATE AMINOTRANSFERASE 32 U/L (15-37); BILIRUBIN,TOTAL 0.3 mg/dL (0.1-1.0); CALCIUM, TOTAL 8.6 mg/dL (8.8-10.5); CARBON DIOXIDE 35 mmol/L (22-29); CHLORIDE 102 mmol/L (98-107); CREATININE 0.48 mg/dL (0.60-1.30); GLOMERULAR FILTR. RATE CALC > 60 mL/min (>60); GLUCOSE,RANDOM 143 mg/dL (70-110); SODIUM SERUM 143 mmol/L (136-145); TOTAL PROTEIN, SERUM 7.6 g/dL (6.4-8.2); VANCOMYCIN,RANDOM 9.6 mcg/mL (25.0-50.0)
[2022-07-08 05:54] LABS: POTASSIUM 2.9 mmol/L (3.5-5.1)
[2022-07-08] MEDS: POTASSIUM CHL 10 MEQ/WATER 50 ML IV PRN ×7 (05:59→23:59)
[2022-07-08 08:00] VITALS: BP 147/100
[2022-07-08] MEDS: VANCOMYCIN HCL 750 MG in DEXTROSE 5%-WATER 250 ML IV SCH ×4 (09:56→16:42)
[2022-07-08] MEDS: PANTOPRAZOLE SODIUM 40 MG/VIAL IVP SCH ×2 (09:56→21:31)
[2022-07-08] MEDS: MEROPENEM 1 GM in SODIUM CHLORIDE 0.9% 100 ML IV SCH ×5 (09:56→23:59)
[2022-07-08] MEDS: NICOTINE 21 MG/24 HOUR PATCH TD SCH (09:57)
[2022-07-08] MEDS: ALPRAZolam 0.25 MG TABLET PO SCH ×3 (09:57→21:30)
[2022-07-08] MEDS: FUROSEMIDE 40 MG/4 ML VIAL IVP SCH ×2 (09:57→21:30)
[2022-07-08] MEDS: METHADONE HCL 10 MG TABLET PO SCH (09:57)
[2022-07-08] MEDS: FentaNYL CIT 1000MCG/0.9% NACL 100 ML IV PRN ×3 (09:59→21:31)
[2022-07-08] MEDS: ETHYL ALCOHOL 62% ANTISEPTIC NASAL SANITIZER 0.6 ML AMPUL NASAL SCH ×2 (10:02→21:30)
[2022-07-08] MEDS: MIDAZOLAM HCL 100 MG in SODIUM CHLORIDE 0.9% 180 ML IV PRN (10:20)
[2022-07-08 12:00] VITALS: BP 102/50
[2022-07-08 16:00] VITALS: BP 104/58
[2022-07-08 20:00] VITALS: BP 131/89
[2022-07-08] MEDS: ACETAMINOPHEN 325 MG TABLET PO PRN (21:30)
[2022-07-08] MEDS: QUEtiapine FUMARATE 100 MG TABLET PO SCH (21:31)
[2022-07-08] MEDS: ONDANSETRON HCL 4 MG/2 ML VIAL IVP PRN (22:25)
[2022-07-09] VITALS: BP 84/45
[2022-07-09] MEDS: VANCOMYCIN HCL 750 MG in DEXTROSE 5%-WATER 250 ML IV SCH ×4 (00:02→23:43)
[2022-07-09] MEDS: FentaNYL CIT 1000MCG/0.9% NACL 100 ML IV PRN ×3 (03:25→18:32)
[2022-07-09 04:00] VITALS: BP 119/62
[2022-07-09 05:43] LABS: BASOPHILS % (AUTO) 0.4 % (0.0-2.0); EOSINOPHILS % (AUTO) 3.3 % (1.0-6.0); HEMATOCRIT 22.4 % (36-46); LYMPHOCYTES # (AUTO) 1.4 K/uL (1.0-4.8); LYMPHOCYTES % (AUTO) 12.5 % (22.0-44.0); MEAN CORPUSCULAR HEMOGLOBIN 24.2 pg (26.0-34.0); MEAN CORPUSCULAR HGB CONC 31.2 G/dL (31.0-37.0); MEAN CORPUSCULAR VOLUME 78 fL (80-100); MONOCYTES # (AUTO) 0.7 K/uL (0.1-1.0); MONOCYTES % (AUTO) 6.2 % (2.0-9.0); NEUTROPHILS # (AUTO) 8.8 K/uL (1.8-7.7); NEUTROPHILS % (AUTO) 77.6 % (40.0-70.0); PLATELET COUNT (AUTO) 363 K/uL (150-450); RED BLOOD CELL COUNT(AUTO) 2.89 MIL/uL (4.00-5.20); RED CELL DISTRIBUTION WIDTH 19.2 % (11.5-14.5)
[2022-07-09 05:53] LABS: ANION GAP 4 mmol/L (8-16); CARBON DIOXIDE 37 mmol/L (22-29); CHLORIDE 101 mmol/L (98-107); CREATININE 0.48 mg/dL (0.60-1.30); GLOMERULAR FILTR. RATE CALC > 60 mL/min (>60); GLUCOSE,RANDOM 100 mg/dL (70-110); POTASSIUM 3.5 mmol/L (3.5-5.1); SODIUM SERUM 142 mmol/L (136-145)
[2022-07-09] MEDS: PROPOFOL 1000 MG/ISO-OSM 100 ML IV PRN ×2 (06:26→18:31)
[2022-07-09 08:00] VITALS: BP 99/65
[2022-07-09] MEDS: MEROPENEM 1 GM in SODIUM CHLORIDE 0.9% 100 ML IV SCH ×3 (08:57→23:43)
[2022-07-09] MEDS: NICOTINE 21 MG/24 HOUR PATCH TD SCH (09:23)
[2022-07-09] MEDS: ALPRAZolam 0.25 MG TABLET PO SCH ×3 (09:24→20:49)
[2022-07-09] MEDS: PANTOPRAZOLE SODIUM 40 MG/VIAL IVP SCH (09:24)
[2022-07-09] MEDS: METHADONE HCL 10 MG TABLET PO SCH (09:24)
[2022-07-09] MEDS: ETHYL ALCOHOL 62% ANTISEPTIC NASAL SANITIZER 0.6 ML AMPUL NASAL SCH ×2 (09:24→20:49)
[2022-07-09] MEDS: FUROSEMIDE 40 MG/4 ML VIAL IVP SCH ×2 (09:25→20:49)
[2022-07-09 11:58] LABS: ABG BASE EXCESS 16.4 mmol/L (-2.0-3.0); ABG CARBOXYHEMOGLOBIN 1.2 % (0.0-1.5); ABG HCO3 38.4 mmol/L (22.0-26.0); ABG METHEMOGLOBIN 0.3 % (0.0-1.5); ABG OXYGEN SATURATION 96.9 % (95.0-98.0); ABG OXYHEMOGLOBIN 95.4 % (94.0-100.0); ABG PCO2 59 mmHg (35-45); ABG PH 7.454 (7.35-7.450); ABG TOTAL HEMOGLOBIN 8.1 G/dL (12.0-18.0); O2 DEVICE,BLOOD GAS VENTILATOR (ROOM AIR); PEEP,BG 8 cm H2O; PO2, ARTERIAL BG 83.1 mmHg (84.0-92.0); SITE, BLOOD GAS RT RADIAL; SOURCE, BLOOD GAS ARTERIAL; TEMPERATURE, FAHRENHEIT, BG 98.6 FAHREN (96.0-98.6); VT, ABG 450 ml
[2022-07-09 12:00] VITALS: BP 117/62
[2022-07-09] MEDS: PANTOPRAZOLE SODIUM 80 MG in SODIUM CHLORIDE 0.9% 100 ML IV SCH ×2 (13:46→23:39)
[2022-07-09] MEDS ORDERED: POTASSIUM CHLORIDE 10% 40 MEQ/30 ML LIQUID UDCUP NG PRN (14:45)
[2022-07-09] MEDS: POTASSIUM CHLORIDE 10% 40 MEQ/30 ML LIQUID UDCUP NG PRN ×2 (14:46→21:11)
[2022-07-09 16:00] VITALS: BP 122/72
[2022-07-09] MEDS: QUEtiapine FUMARATE 100 MG TABLET PO SCH (20:50)
[2022-07-09 21:10] VITALS: BP 128/77
[2022-07-09] MEDS: ACETAMINOPHEN 325 MG TABLET PO PRN (21:40)
[2022-07-10] VITALS: BP 101/59
[2022-07-10] MEDS: FentaNYL CIT 1000MCG/0.9% NACL 100 ML IV PRN ×2 (02:13→13:50)
[2022-07-10 04:00] VITALS: BP 102/63
[2022-07-10] MEDS: ACETAMINOPHEN 325 MG TABLET PO PRN ×3 (04:29→20:09)
[2022-07-10 05:01] LABS: GLUCOSE,POINT OF CARE 104 MG/DL (70-110)
[2022-07-10 05:34] LABS: BASOPHILS % (AUTO) 0.7 % (0.0-2.0); EOSINOPHILS % (AUTO) 4.9 % (1.0-6.0); LYMPHOCYTES # (AUTO) 1.3 K/uL (1.0-4.8); LYMPHOCYTES % (AUTO) 14.5 % (22.0-44.0); MEAN CORPUSCULAR HEMOGLOBIN 24.9 pg (26.0-34.0); MEAN CORPUSCULAR HGB CONC 31.9 G/dL (31.0-37.0); MEAN CORPUSCULAR VOLUME 78 fL (80-100); MONOCYTES # (AUTO) 0.6 K/uL (0.1-1.0); MONOCYTES % (AUTO) 6.6 % (2.0-9.0); NEUTROPHILS # (AUTO) 6.7 K/uL (1.8-7.7); NEUTROPHILS % (AUTO) 73.3 % (40.0-70.0); PLATELET COUNT (AUTO) 404 K/uL (150-450); RED BLOOD CELL COUNT(AUTO) 2.81 MIL/uL (4.00-5.20)
[2022-07-10 05:44] LABS: ANION GAP 2 mmol/L (8-16); CALCIUM, TOTAL 8.3 mg/dL (8.8-10.5); CARBON DIOXIDE 36 mmol/L (22-29); CHLORIDE 99 mmol/L (98-107); CREATININE 0.47 mg/dL (0.60-1.30); GLOMERULAR FILTR. RATE CALC > 60 mL/min (>60); GLUCOSE,RANDOM 99 mg/dL (70-110); POTASSIUM 3.8 mmol/L (3.5-5.1); SODIUM SERUM 137 mmol/L (136-145)
[2022-07-10] MEDS: PROPOFOL 1000 MG/ISO-OSM 100 ML IV PRN (06:40)
[2022-07-10 07:41] LABS: GLUCOSE,POINT OF CARE 93 MG/DL (70-110)
[2022-07-10 08:00] VITALS: BP 91/59
[2022-07-10] MEDS: FUROSEMIDE 40 MG/4 ML VIAL IVP SCH ×2 (09:23→20:09)
[2022-07-10] MEDS: PANTOPRAZOLE SODIUM 80 MG in SODIUM CHLORIDE 0.9% 100 ML IV SCH ×2 (09:23→19:31)
[2022-07-10] MEDS: VANCOMYCIN HCL 750 MG in DEXTROSE 5%-WATER 250 ML IV SCH ×2 (09:23→15:33)
[2022-07-10] MEDS: MEROPENEM 1 GM in SODIUM CHLORIDE 0.9% 100 ML IV SCH ×2 (09:23→15:32)
[2022-07-10] MEDS: METHADONE HCL 10 MG TABLET PO SCH (09:24)
[2022-07-10] MEDS: ALPRAZolam 0.25 MG TABLET PO SCH ×3 (09:26→20:08)
[2022-07-10] MEDS: NICOTINE 21 MG/24 HOUR PATCH TD SCH (09:26)
[2022-07-10] MEDS: ETHYL ALCOHOL 62% ANTISEPTIC NASAL SANITIZER 0.6 ML AMPUL NASAL SCH ×2 (09:28→20:09)
[2022-07-10 12:00] VITALS: BP 123/81
[2022-07-10] MEDS ORDERED: HEPARIN SODIUM,PORCINE 5,000 UNITS/ML VIAL IVP ONE (12:00)
[2022-07-10 12:12] LABS: ABG BASE EXCESS 10.8 mmol/L (-2.0-3.0); ABG CARBOXYHEMOGLOBIN 1.2 % (0.0-1.5); ABG HCO3 33.4 mmol/L (22.0-26.0); ABG METHEMOGLOBIN 0.3 % (0.0-1.5); ABG OXYGEN CONTENT 11.5 mL/dL (15.0-23.0); ABG OXYGEN SATURATION 90.6 % (95.0-98.0); ABG OXYHEMOGLOBIN 89.2 % (94.0-100.0); ABG PCO2 47 mmHg (35-45); ABG PH 7.481 (7.35-7.450); ABG TOTAL HEMOGLOBIN 9.1 G/dL (12.0-18.0); PO2, ARTERIAL BG 61.9 mmHg (84.0-92.0); SITE, BLOOD GAS RT RADIAL; SOURCE, BLOOD GAS ARTERIAL; TEMPERATURE, FAHRENHEIT, BG 100.7 FAHREN (96.0-98.6)
[2022-07-10 12:13] LABS: ABG A-A DIFF O2 167.9 mmHg (10-20.0); O2 DEVICE,BLOOD GAS VENTILATOR (ROOM AIR); PEEP,BG 5 cm H2O; PRESSURE SUPPORT, BG 5 cm H2O; SPONTANEOUS VT, BG 552 ml; VENT MODE, BG Press. Support Vent. (ROOM AIR)
[2022-07-10 12:29] LABS: INR 1.3 (0.9-1.1); PROTHROMBIN TIME 13.6 SEC (9.4-11.6)
[2022-07-10] MEDS: HEPARIN SODIUM 25000 UNITS/D5W 250 ML IV PRN (13:08)
[2022-07-10 16:00] VITALS: BP 137/85
[2022-07-10 18:06] LABS: LEGIONELLA PNEUMO AG URINE Negative (Negative)
[2022-07-10 20:00] VITALS: BP 146/71
[2022-07-10] MEDS ORDERED: SODIUM CHLORIDE 0.9% 250 ML IV ONE (20:06)
[2022-07-10] MEDS: QUEtiapine FUMARATE 100 MG TABLET PO SCH (20:08)
[2022-07-10] MEDS: HEPARIN SODIUM,PORCINE 5,000 UNITS/ML VIAL IVP PRN (22:51)
[2022-07-11] VITALS: BP 102/59
[2022-07-11] MEDS: VANCOMYCIN HCL 750 MG in DEXTROSE 5%-WATER 250 ML IV SCH (00:38)
[2022-07-11] MEDS: MEROPENEM 1 GM in SODIUM CHLORIDE 0.9% 100 ML IV SCH ×3 (00:39→16:16)
[2022-07-11] MEDS: FentaNYL CIT 1000MCG/0.9% NACL 100 ML IV PRN ×2 (02:04→22:55)
[2022-07-11 04:00] VITALS: BP 93/57
[2022-07-11] MEDS: PANTOPRAZOLE SODIUM 80 MG in SODIUM CHLORIDE 0.9% 100 ML IV SCH ×2 (05:32→16:16)
[2022-07-11 05:56] LABS: BASOPHILS % (AUTO) 0.9 % (0.0-2.0); EOSINOPHILS % (AUTO) 5.7 % (1.0-6.0); HEMATOCRIT 25.8 % (36-46); HEMOGLOBIN 8.4 g/dL (12.0-16.0); LYMPHOCYTES # (AUTO) 1.8 K/uL (1.0-4.8); LYMPHOCYTES % (AUTO) 18.4 % (22.0-44.0); MEAN CORPUSCULAR HEMOGLOBIN 25.2 pg (26.0-34.0); MEAN CORPUSCULAR HGB CONC 32.5 G/dL (31.0-37.0); MEAN CORPUSCULAR VOLUME 77 fL (80-100); MONOCYTES # (AUTO) 0.6 K/uL (0.1-1.0); MONOCYTES % (AUTO) 6.1 % (2.0-9.0); NEUTROPHILS # (AUTO) 6.8 K/uL (1.8-7.7); NEUTROPHILS % (AUTO) 68.9 % (40.0-70.0); PLATELET COUNT (AUTO) 561 K/uL (150-450); RED BLOOD CELL COUNT(AUTO) 3.33 MIL/uL (4.00-5.20); RED CELL DISTRIBUTION WIDTH 19.1 % (11.5-14.5)
[2022-07-11 06:14] LABS: ALANINE AMINOTRANSFERASE 24 U/L (12-78); ALBUMIN 1.8 g/dL (3.4-5.0); ALKALINE PHOSPHATASE 73 U/L (46-116); ANION GAP 5 mmol/L (8-16); ASPARTATE AMINOTRANSFERASE 38 U/L (15-37); BILIRUBIN,TOTAL 0.3 mg/dL (0.1-1.0); CARBON DIOXIDE 35 mmol/L (22-29); CHLORIDE 96 mmol/L (98-107); CREATININE 0.54 mg/dL (0.60-1.30); GLOMERULAR FILTR. RATE CALC > 60 mL/min (>60); GLUCOSE,RANDOM 88 mg/dL (70-110); POTASSIUM 3.5 mmol/L (3.5-5.1); SODIUM SERUM 136 mmol/L (136-145); TOTAL PROTEIN, SERUM 8.6 g/dL (6.4-8.2); VANCOMYCIN,RANDOM 29.3 mcg/mL (25.0-50.0)
[2022-07-11 08:00] VITALS: BP 128/70
[2022-07-11] MEDS: ALPRAZolam 0.25 MG TABLET PO SCH ×3 (08:49→21:00)
[2022-07-11] MEDS: VANCOMYCIN HCL 500 MG in DEXTROSE 5%-WATER 100 ML IV SCH ×2 (08:49→16:17)
[2022-07-11] MEDS: HEPARIN SODIUM 25000 UNITS/D5W 250 ML IV PRN ×2 (08:51→22:54)
[2022-07-11] MEDS: METHADONE HCL 10 MG TABLET PO SCH (08:52)
[2022-07-11] MEDS: ETHYL ALCOHOL 62% ANTISEPTIC NASAL SANITIZER 0.6 ML AMPUL NASAL SCH ×2 (08:52→21:00)
[2022-07-11] MEDS: FUROSEMIDE 40 MG/4 ML VIAL IVP SCH ×2 (08:52→21:00)
[2022-07-11] MEDS: ACETAMINOPHEN 325 MG TABLET PO PRN (08:53)
[2022-07-11] MEDS: NICOTINE 21 MG/24 HOUR PATCH TD SCH (08:53)
[2022-07-11] MEDS: HEPARIN SODIUM,PORCINE 5,000 UNITS/ML VIAL IVP PRN ×2 (08:54→13:47)
[2022-07-11 11:54] LABS: ABG BASE EXCESS 13.1 mmol/L (-2.0-3.0); ABG CARBOXYHEMOGLOBIN 1.1 % (0.0-1.5); ABG HCO3 35.4 mmol/L (22.0-26.0); ABG METHEMOGLOBIN 0.3 % (0.0-1.5); ABG OXYGEN CONTENT 12.4 mL/dL (15.0-23.0); ABG OXYGEN SATURATION 90.3 % (95.0-98.0); ABG PCO2 48 mmHg (35-45); ABG PH 7.496 (7.35-7.450); ABG TOTAL HEMOGLOBIN 9.9 G/dL (12.0-18.0); PO2, ARTERIAL BG 58.1 mmHg (84.0-92.0); SOURCE, BLOOD GAS ARTERIAL; TEMPERATURE, FAHRENHEIT, BG 98.8 FAHREN (96.0-98.6)
[2022-07-11 11:57] LABS: ABG A-A DIFF O2 171.7 mmHg (10-20.0); O2 DEVICE,BLOOD GAS VENTILATOR (ROOM AIR); SITE, BLOOD GAS RT RADIAL; VENT MODE, BG Press. Support Vent. (ROOM AIR)
[2022-07-11 11:58] LABS: PEEP,BG 0 cm H2O; PRESSURE SUPPORT, BG 8 cm H2O; SPONTANEOUS VT, BG 483 ml
[2022-07-11] MEDS: PROPOFOL 1000 MG/ISO-OSM 100 ML IV PRN (12:45)
[2022-07-11 13:00] VITALS: BP 97/59
[2022-07-11] MEDS: MIDAZOLAM HCL 100 MG in SODIUM CHLORIDE 0.9% 180 ML IV PRN (15:36)
[2022-07-11 16:00] VITALS: BP 134/80
[2022-07-11 20:00] VITALS: BP 143/86
[2022-07-11] MEDS: QUEtiapine FUMARATE 100 MG TABLET PO SCH (21:00)
[2022-07-12] VITALS: BP 91/55
[2022-07-12] MEDS: MEROPENEM 1 GM in SODIUM CHLORIDE 0.9% 100 ML IV SCH ×4 (00:22→23:50)
[2022-07-12] MEDS: VANCOMYCIN HCL 500 MG in DEXTROSE 5%-WATER 100 ML IV SCH ×3 (00:51→15:51)
[2022-07-12] MEDS: PANTOPRAZOLE SODIUM 80 MG in SODIUM CHLORIDE 0.9% 100 ML IV SCH ×3 (01:22→20:03)
[2022-07-12 04:00] VITALS: BP 98/57
[2022-07-12 05:50] LABS: BASOPHILS % (AUTO) 1.1 % (0.0-2.0); EOSINOPHILS % (AUTO) 6.3 % (1.0-6.0); HEMATOCRIT 28.8 % (36-46); HEMOGLOBIN 9.1 g/dL (12.0-16.0); LYMPHOCYTES # (AUTO) 1.9 K/uL (1.0-4.8); LYMPHOCYTES % (AUTO) 19.1 % (22.0-44.0); MEAN CORPUSCULAR HEMOGLOBIN 24.6 pg (26.0-34.0); MEAN CORPUSCULAR HGB CONC 31.8 G/dL (31.0-37.0); MEAN CORPUSCULAR VOLUME 77 fL (80-100); MONOCYTES # (AUTO) 0.8 K/uL (0.1-1.0); MONOCYTES % (AUTO) 8.2 % (2.0-9.0); NEUTROPHILS # (AUTO) 6.4 K/uL (1.8-7.7); NEUTROPHILS % (AUTO) 65.3 % (40.0-70.0); PLATELET COUNT (AUTO) 707 K/uL (150-450); RED BLOOD CELL COUNT(AUTO) 3.72 MIL/uL (4.00-5.20)
[2022-07-12 06:12] LABS: ANION GAP 8 mmol/L (8-16); CALCIUM, TOTAL 9.6 mg/dL (8.8-10.5); CARBON DIOXIDE 33 mmol/L (22-29); CHLORIDE 95 mmol/L (98-107); CREATININE 0.56 mg/dL (0.60-1.30); GLOMERULAR FILTR. RATE CALC > 60 mL/min (>60); GLUCOSE,RANDOM 90 mg/dL (70-110); POTASSIUM 4.3 mmol/L (3.5-5.1); SODIUM SERUM 136 mmol/L (136-145)
[2022-07-12] MEDS: ONDANSETRON HCL 4 MG/2 ML VIAL IVP PRN (06:15)
[2022-07-12] MEDS: HEPARIN SODIUM,PORCINE 5,000 UNITS/ML VIAL IVP PRN (07:13)
[2022-07-12 08:00] VITALS: BP 106/64
[2022-07-12] MEDS: NICOTINE 21 MG/24 HOUR PATCH TD SCH (08:46)
[2022-07-12] MEDS: ALPRAZolam 0.25 MG TABLET PO SCH ×3 (08:46→20:03)
[2022-07-12] MEDS: METHADONE HCL 10 MG TABLET PO SCH (08:46)
[2022-07-12] MEDS: FUROSEMIDE 40 MG/4 ML VIAL IVP SCH ×2 (08:47→20:03)
[2022-07-12] MEDS: ETHYL ALCOHOL 62% ANTISEPTIC NASAL SANITIZER 0.6 ML AMPUL NASAL SCH ×2 (08:47→20:03)
[2022-07-12 10:09] LABS: ABG BASE EXCESS 12.9 mmol/L (-2.0-3.0); ABG CARBOXYHEMOGLOBIN 0.2 % (0.0-1.5); ABG HCO3 34.9 mmol/L (22.0-26.0); ABG METHEMOGLOBIN 0.3 % (0.0-1.5); ABG OXYGEN CONTENT 13.1 mL/dL (15.0-23.0); ABG OXYGEN SATURATION 95.8 % (95.0-98.0); ABG OXYHEMOGLOBIN 95.3 % (94.0-100.0); ABG PCO2 59 mmHg (35-45); ABG PH 7.418 (7.35-7.450); ABG TOTAL HEMOGLOBIN 9.7 G/dL (12.0-18.0); PO2, ARTERIAL BG 83.6 mmHg (84.0-92.0); SOURCE, BLOOD GAS ARTERIAL
[2022-07-12 10:10] LABS: ABG A-A DIFF O2 133.8 mmHg (10-20.0); CPAP, BG 5 cm H2O; O2 DEVICE,BLOOD GAS VENTILATOR (ROOM AIR); PRESSURE SUPPORT, BG 8 cm H2O; SITE, BLOOD GAS RT RADIAL; SPONTANEOUS VT, BG 630 ml; VENT MODE, BG CPAP (ROOM AIR)
[2022-07-12 11:07] LABS: U HISTOPLASMA GALACTOMANNAN AG <0.5 (<0.5 ng/mL)
[2022-07-12 12:00] VITALS: BP 111/57
[2022-07-12] MEDS: ACETAMINOPHEN 325 MG TABLET PO PRN (12:37)
[2022-07-12] MEDS: HEPARIN SODIUM 25000 UNITS/D5W 250 ML IV PRN (15:32)
[2022-07-12 16:00] VITALS: BP 143/77
[2022-07-12] MEDS: HYDROmorphone HCL 2 MG/ML SYRINGE IVP PRN (18:02)
[2022-07-12 20:00] VITALS: BP 111/69
[2022-07-12] MEDS: QUEtiapine FUMARATE 100 MG TABLET PO SCH (20:03)
[2022-07-12] MEDS ORDERED: IOHEXOL 350 MG/ML 100 ML VIAL ONE (20:59)
[2022-07-12] MEDS ORDERED: SODIUM CHLORIDE 0.9% 100 ML ONE (20:59)
[2022-07-13] VITALS: BP 117/78
[2022-07-13] MEDS: VANCOMYCIN HCL 500 MG in DEXTROSE 5%-WATER 100 ML IV SCH (00:43)
[2022-07-13 04:00] VITALS: BP 116/65
[2022-07-13] MEDS ORDERED: SODIUM CHLORIDE 0.9% 250 ML IV ONE (04:34)
[2022-07-13] MEDS: DEXMEDETOMIDINE HCL 400 MCG in SODIUM CHLORIDE 0.9% 96 ML IV PRN (04:45)
[2022-07-13 06:13] LABS: ANION GAP 6 mmol/L (8-16); CALCIUM, TOTAL 9.5 mg/dL (8.8-10.5); CARBON DIOXIDE 34 mmol/L (22-29); CHLORIDE 97 mmol/L (98-107); CREATININE 0.55 mg/dL (0.60-1.30); GLOMERULAR FILTR. RATE CALC > 60 mL/min (>60); GLUCOSE,RANDOM 92 mg/dL (70-110); POTASSIUM 3.1 mmol/L (3.5-5.1); SODIUM SERUM 137 mmol/L (136-145); VANCOMYCIN,RANDOM 15.8 mcg/mL (25.0-50.0)
[2022-07-13] MEDS: HEPARIN SODIUM,PORCINE 5,000 UNITS/ML VIAL IVP PRN ×2 (06:28→13:52)
[2022-07-13 06:46] LABS: GLUCOSE,POINT OF CARE 193 MG/DL (70-110)
[2022-07-13] MEDS: NICOTINE 21 MG/24 HOUR PATCH TD SCH (07:50)
[2022-07-13] MEDS: ALPRAZolam 0.25 MG TABLET PO SCH ×3 (07:51→20:54)
[2022-07-13] MEDS: METHADONE HCL 10 MG TABLET PO SCH (07:51)
[2022-07-13] MEDS: FUROSEMIDE 40 MG/4 ML VIAL IVP SCH ×2 (07:52→20:54)
[2022-07-13] MEDS: POTASSIUM CHL 10 MEQ/WATER 50 ML IV PRN ×2 (07:52→09:13)
[2022-07-13] MEDS: ETHYL ALCOHOL 62% ANTISEPTIC NASAL SANITIZER 0.6 ML AMPUL NASAL SCH ×2 (07:53→20:54)
[2022-07-13 08:00] VITALS: BP 117/59
[2022-07-13] MEDS: PANTOPRAZOLE SODIUM 80 MG in SODIUM CHLORIDE 0.9% 100 ML IV SCH ×2 (08:11→17:20)
[2022-07-13] MEDS: HYDROmorphone HCL 2 MG/ML SYRINGE IVP PRN ×2 (08:58→16:25)
[2022-07-13] MEDS: MEROPENEM 1 GM in SODIUM CHLORIDE 0.9% 100 ML IV SCH ×2 (11:45→20:54)
[2022-07-13 12:00] VITALS: BP 137/72
[2022-07-13] MEDS: ACETAMINOPHEN 325 MG TABLET PO PRN (12:05)
[2022-07-13] MEDS: VANCOMYCIN HCL 750 MG in DEXTROSE 5%-WATER 250 ML IV SCH ×2 (12:06→16:09)
[2022-07-13] MEDS: CYCLOBENZAPRINE HCL 10 MG TABLET PO PRN (15:30)
[2022-07-13] MEDS: HEPARIN SODIUM 25000 UNITS/D5W 250 ML IV PRN (16:17)
[2022-07-13 16:35] VITALS: BP 125/81
[2022-07-13 20:00] VITALS: BP 121/73
[2022-07-13] MEDS: QUEtiapine FUMARATE 100 MG TABLET PO SCH (20:54)
[2022-07-14] VITALS (8 sets, daily range): BP systolic 91–138; BP diastolic 56–94
[2022-07-14] MEDS: VANCOMYCIN HCL 750 MG in DEXTROSE 5%-WATER 250 ML IV SCH ×4 (00:21→23:34)
[2022-07-14] MEDS: PANTOPRAZOLE SODIUM 80 MG in SODIUM CHLORIDE 0.9% 100 ML IV SCH (03:10)
[2022-07-14] MEDS: MEROPENEM 1 GM in SODIUM CHLORIDE 0.9% 100 ML IV SCH ×3 (03:11→21:11)
[2022-07-14] MEDS ORDERED: SODIUM CHLORIDE 0.9% 250 ML IV ONE (05:43)
[2022-07-14 06:03] LABS: ALBUMIN 2.2 g/dL (3.4-5.0); ANION GAP 7 mmol/L (8-16); CALCIUM, TOTAL 9.6 mg/dL (8.8-10.5); CARBON DIOXIDE 34 mmol/L (22-29); CHLORIDE 96 mmol/L (98-107); CREATININE 0.67 mg/dL (0.60-1.30); GLOMERULAR FILTR. RATE CALC > 60 mL/min (>60); GLUCOSE,RANDOM 94 mg/dL (70-110); POTASSIUM 3.2 mmol/L (3.5-5.1); SODIUM SERUM 137 mmol/L (136-145)
[2022-07-14] MEDS: HEPARIN SODIUM,PORCINE 5,000 UNITS/ML VIAL IVP PRN (06:45)
[2022-07-14] MEDS: ALPRAZolam 0.25 MG TABLET PO SCH ×3 (07:50→21:12)
[2022-07-14] MEDS: FUROSEMIDE 40 MG/4 ML VIAL IVP SCH ×2 (07:51→21:12)
[2022-07-14] MEDS: NICOTINE 21 MG/24 HOUR PATCH TD SCH (07:52)
[2022-07-14] MEDS: ETHYL ALCOHOL 62% ANTISEPTIC NASAL SANITIZER 0.6 ML AMPUL NASAL SCH ×2 (07:52→21:12)
[2022-07-14] MEDS: METHADONE HCL 10 MG TABLET PO SCH (07:53)
[2022-07-14] MEDS: POTASSIUM CHLORIDE 20 MEQ ER TABLET PO PRN (08:06)
[2022-07-14] MEDS: ONDANSETRON HCL 4 MG/2 ML VIAL IVP PRN (08:06)
[2022-07-14] MEDS: HEPARIN SODIUM 25000 UNITS/D5W 250 ML IV PRN (11:58)
[2022-07-14] MEDS: CYCLOBENZAPRINE HCL 10 MG TABLET PO PRN (16:46)
[2022-07-14] MEDS: PANTOPRAZOLE SODIUM 40 MG/VIAL IVP SCH (21:12)
[2022-07-14] MEDS: QUEtiapine FUMARATE 100 MG TABLET PO SCH (21:12)
[2022-07-15] VITALS: BP 104/65
[2022-07-15 04:00] VITALS: BP 109/75
[2022-07-15] MEDS: MEROPENEM 1 GM in SODIUM CHLORIDE 0.9% 100 ML IV SCH ×3 (04:34→20:45)
[2022-07-15 06:22] LABS: ANION GAP 4 mmol/L (8-16); CALCIUM, TOTAL 9.6 mg/dL (8.8-10.5); CARBON DIOXIDE 36 mmol/L (22-29); CHLORIDE 98 mmol/L (98-107); CREATININE 0.93 mg/dL (0.60-1.30); GLOMERULAR FILTR. RATE CALC > 60 mL/min (>60); GLUCOSE,RANDOM 90 mg/dL (70-110); POTASSIUM 3.6 mmol/L (3.5-5.1); SODIUM SERUM 138 mmol/L (136-145)
[2022-07-15 06:42] LABS: BASOPHILS % (AUTO) 1.9 % (0.0-2.0); EOSINOPHILS % (AUTO) 7.4 % (1.0-6.0); HEMATOCRIT 26.3 % (36-46); HEMOGLOBIN 8.3 g/dL (12.0-16.0); LYMPHOCYTES # (AUTO) 1.9 K/uL (1.0-4.8); LYMPHOCYTES % (AUTO) 28.8 % (22.0-44.0); MEAN CORPUSCULAR HEMOGLOBIN 24.4 pg (26.0-34.0); MEAN CORPUSCULAR HGB CONC 31.4 G/dL (31.0-37.0); MEAN CORPUSCULAR VOLUME 78 fL (80-100); MONOCYTES # (AUTO) 0.8 K/uL (0.1-1.0); MONOCYTES % (AUTO) 11.5 % (2.0-9.0); NEUTROPHILS # (AUTO) 3.3 K/uL (1.8-7.7); NEUTROPHILS % (AUTO) 50.4 % (40.0-70.0); PLATELET COUNT (AUTO) 603 K/uL (150-450); RED BLOOD CELL COUNT(AUTO) 3.39 MIL/uL (4.00-5.20); RED CELL DISTRIBUTION WIDTH 19.9 % (11.5-14.5)
[2022-07-15] MEDS: VANCOMYCIN HCL 750 MG in DEXTROSE 5%-WATER 250 ML IV SCH ×2 (09:00→16:36)
[2022-07-15 09:06] VITALS: BP 122/73
[2022-07-15] MEDS: METHADONE HCL 10 MG TABLET PO SCH (09:12)
[2022-07-15] MEDS: ALPRAZolam 0.25 MG TABLET PO SCH ×3 (09:12→20:46)
[2022-07-15] MEDS: CYCLOBENZAPRINE HCL 10 MG TABLET PO PRN (09:13)
[2022-07-15] MEDS: NICOTINE 21 MG/24 HOUR PATCH TD SCH (09:15)
[2022-07-15] MEDS: ETHYL ALCOHOL 62% ANTISEPTIC NASAL SANITIZER 0.6 ML AMPUL NASAL SCH ×2 (09:16→20:50)
[2022-07-15] MEDS: FUROSEMIDE 40 MG/4 ML VIAL IVP SCH ×2 (09:16→20:46)
[2022-07-15] MEDS: PANTOPRAZOLE SODIUM 40 MG/VIAL IVP SCH ×2 (09:16→20:46)
[2022-07-15 11:34] VITALS: BP 107/64
[2022-07-15] MEDS: HEPARIN SODIUM,PORCINE 5,000 UNITS/ML VIAL IVP PRN (12:18)
[2022-07-15 15:45] VITALS: BP 111/68
[2022-07-15 20:38] VITALS: BP 95/66
[2022-07-15] MEDS: QUEtiapine FUMARATE 100 MG TABLET PO SCH (20:46)
[2022-07-16] MEDS: VANCOMYCIN HCL 750 MG in DEXTROSE 5%-WATER 250 ML IV SCH ×2 (00:17→08:00)
[2022-07-16 01:18] VITALS: BP 101/58
[2022-07-16] MEDS: HEPARIN SODIUM 25000 UNITS/D5W 250 ML IV PRN ×2 (03:40→11:11)
[2022-07-16] MEDS: MEROPENEM 1 GM in SODIUM CHLORIDE 0.9% 100 ML IV SCH ×3 (03:55→20:17)
[2022-07-16 04:58] VITALS: BP 100/59
[2022-07-16 06:39] LABS: BASOPHILS % (AUTO) 1.9 % (0.0-2.0); EOSINOPHILS % (AUTO) 8.1 % (1.0-6.0); HEMATOCRIT 27.3 % (36-46); HEMOGLOBIN 8.7 g/dL (12.0-16.0); LYMPHOCYTES # (AUTO) 2.1 K/uL (1.0-4.8); LYMPHOCYTES % (AUTO) 30.8 % (22.0-44.0); MEAN CORPUSCULAR HEMOGLOBIN 24.9 pg (26.0-34.0); MEAN CORPUSCULAR HGB CONC 31.9 G/dL (31.0-37.0); MEAN CORPUSCULAR VOLUME 78 fL (80-100); MONOCYTES # (AUTO) 0.8 K/uL (0.1-1.0); MONOCYTES % (AUTO) 11.4 % (2.0-9.0); NEUTROPHILS # (AUTO) 3.2 K/uL (1.8-7.7); NEUTROPHILS % (AUTO) 47.8 % (40.0-70.0); PLATELET COUNT (AUTO) 590 K/uL (150-450); RED CELL DISTRIBUTION WIDTH 19.9 % (11.5-14.5)
[2022-07-16 06:48] LABS: CALCIUM, TOTAL 9.2 mg/dL (8.8-10.5); CREATININE 1.05 mg/dL (0.60-1.30); POTASSIUM 3.4 mmol/L (3.5-5.1)
[2022-07-16 07:48] VITALS: BP 106/58
[2022-07-16 08:34] LABS: VANCOMYCIN,RANDOM 47.6 mcg/mL (25.0-50.0)
[2022-07-16] MEDS: ALPRAZolam 0.25 MG TABLET PO SCH ×3 (08:58→20:18)
[2022-07-16] MEDS: FUROSEMIDE 40 MG/4 ML VIAL IVP SCH ×2 (08:59→20:18)
[2022-07-16] MEDS: PANTOPRAZOLE SODIUM 40 MG/VIAL IVP SCH ×2 (08:59→20:18)
[2022-07-16] MEDS: NICOTINE 21 MG/24 HOUR PATCH TD SCH (09:00)
[2022-07-16] MEDS: METHADONE HCL 10 MG TABLET PO SCH (09:00)
[2022-07-16] MEDS: ETHYL ALCOHOL 62% ANTISEPTIC NASAL SANITIZER 0.6 ML AMPUL NASAL SCH ×2 (09:00→20:19)
[2022-07-16] MEDS ORDERED: VANCOMYCIN HCL 1 GM in DEXTROSE 5%-WATER 250 ML IV PRN (09:45)
[2022-07-16 11:35] VITALS: BP 105/72
[2022-07-16] MEDS: ONDANSETRON HCL 4 MG/2 ML VIAL IVP PRN (14:22)
[2022-07-16 15:19] VITALS: BP 105/59
[2022-07-16] MEDS: QUEtiapine FUMARATE 100 MG TABLET PO SCH (20:18)
[2022-07-16] MEDS: APIXABAN 2.5 MG TABLET PO SCH (20:18)
[2022-07-16 21:10] VITALS: BP 104/56
[2022-07-17 01:01] VITALS: BP 105/71
[2022-07-17] MEDS: MEROPENEM 1 GM in SODIUM CHLORIDE 0.9% 100 ML IV SCH ×3 (04:19→19:50)
[2022-07-17 04:45] VITALS: BP 100/67
[2022-07-17 07:03] LABS: BASOPHILS % (AUTO) 1.5 % (0.0-2.0); CALCIUM, TOTAL 9.1 mg/dL (8.8-10.5); CREATININE 1.17 mg/dL (0.60-1.30); EOSINOPHILS % (AUTO) 7.3 % (1.0-6.0); HEMATOCRIT 27.6 % (36-46); HEMOGLOBIN 8.5 g/dL (12.0-16.0); LYMPHOCYTES # (AUTO) 1.6 K/uL (1.0-4.8); LYMPHOCYTES % (AUTO) 24.9 % (22.0-44.0); MEAN CORPUSCULAR HEMOGLOBIN 24.5 pg (26.0-34.0); MEAN CORPUSCULAR HGB CONC 30.9 G/dL (31.0-37.0); MEAN CORPUSCULAR VOLUME 79 fL (80-100); MONOCYTES # (AUTO) 0.6 K/uL (0.1-1.0); MONOCYTES % (AUTO) 9.3 % (2.0-9.0); NEUTROPHILS # (AUTO) 3.7 K/uL (1.8-7.7); PLATELET COUNT (AUTO) 567 K/uL (150-450); POTASSIUM 3.6 mmol/L (3.5-5.1); RED BLOOD CELL COUNT(AUTO) 3.48 MIL/uL (4.00-5.20)
[2022-07-17 07:11] VITALS: BP 96/53
[2022-07-17] MEDS: ALPRAZolam 0.25 MG TABLET PO SCH ×3 (08:42→19:53)
[2022-07-17] MEDS: APIXABAN 2.5 MG TABLET PO SCH ×2 (08:42→19:50)
[2022-07-17] MEDS: METHADONE HCL 10 MG TABLET PO SCH (08:42)
[2022-07-17] MEDS: FUROSEMIDE 40 MG/4 ML VIAL IVP SCH ×2 (08:43→19:51)
[2022-07-17] MEDS: NICOTINE 21 MG/24 HOUR PATCH TD SCH (08:43)
[2022-07-17] MEDS: PANTOPRAZOLE SODIUM 40 MG/VIAL IVP SCH ×2 (08:44→19:50)
[2022-07-17 08:54] LABS: VANCOMYCIN,RANDOM 24.4 mcg/mL (25.0-50.0)
[2022-07-17] MEDS: ETHYL ALCOHOL 62% ANTISEPTIC NASAL SANITIZER 0.6 ML AMPUL NASAL SCH ×2 (08:56→19:50)
[2022-07-17 10:57] VITALS: BP 103/68
[2022-07-17] MEDS ORDERED: SODIUM CHLORIDE 0.9% 250 ML IV ONE (11:36)
[2022-07-17] MEDS: POTASSIUM CHLORIDE 20 MEQ ER TABLET PO PRN (12:00)
[2022-07-17 15:24] LABS: ABG BASE EXCESS 9.2 mmol/L (-2.0-3.0); ABG CARBOXYHEMOGLOBIN 0.8 % (0.0-1.5); ABG HCO3 31.9 mmol/L (22.0-26.0); ABG METHEMOGLOBIN 0.3 % (0.0-1.5); ABG OXYGEN CONTENT 11.3 mL/dL (15.0-23.0); ABG PCO2 39 mmHg (35-45); ABG TOTAL HEMOGLOBIN 10.4 G/dL (12.0-18.0); SOURCE, BLOOD GAS ARTERIAL; TEMPERATURE, FAHRENHEIT, BG 97.8 FAHREN (96.0-98.6)
[2022-07-17 15:26] LABS: PO2, ARTERIAL BG 39.3 mmHg (84.0-92.0)
[2022-07-17 15:27] LABS: ABG OXYGEN SATURATION 77.9 % (95.0-98.0); O2 DEVICE,BLOOD GAS ROOM AIR (ROOM AIR); SITE, BLOOD GAS RT BRACHIAL
[2022-07-17 16:43] VITALS: BP 100/52
[2022-07-17] MEDS: QUEtiapine FUMARATE 100 MG TABLET PO SCH (19:53)
[2022-07-17 20:06] VITALS: BP 106/67
[2022-07-17 20:56] LABS: GLUCOMETER DEV NAME(LOC) 5N.1C; GLUCOSE,POINT OF CARE 80 MG/DL (70-110)
[2022-07-18 00:10] VITALS: BP 101/62
[2022-07-18] MEDS: MEROPENEM 1 GM in SODIUM CHLORIDE 0.9% 100 ML IV SCH ×2 (04:12→12:55)
[2022-07-18 05:09] VITALS: BP 99/68
[2022-07-18 07:24] LABS: CALCIUM, TOTAL 9.5 mg/dL (8.8-10.5); CREATININE 1.08 mg/dL (0.60-1.30)
[2022-07-18 07:43] VITALS: BP 103/59
[2022-07-18] MEDS ORDERED: VANCOMYCIN HCL 750 MG in DEXTROSE 5%-WATER 250 ML IV ONE (08:00)
[2022-07-18] MEDS: APIXABAN 2.5 MG TABLET PO SCH (08:41)
[2022-07-18] MEDS: PANTOPRAZOLE SODIUM 40 MG/VIAL IVP SCH (08:41)
[2022-07-18] MEDS: ALPRAZolam 0.25 MG TABLET PO SCH ×2 (08:41→16:43)
[2022-07-18] MEDS: METHADONE HCL 10 MG TABLET PO SCH (08:41)
[2022-07-18] MEDS: FUROSEMIDE 40 MG/4 ML VIAL IVP SCH (08:41)
[2022-07-18] MEDS: ETHYL ALCOHOL 62% ANTISEPTIC NASAL SANITIZER 0.6 ML AMPUL NASAL SCH (08:41)
[2022-07-18] MEDS: NICOTINE 21 MG/24 HOUR PATCH TD SCH (08:41)
[2022-07-18] MEDS: ONDANSETRON HCL 4 MG/2 ML VIAL IVP PRN (08:58)
[2022-07-18 10:55] VITALS: BP 104/75
[2022-07-18] MEDS ORDERED: ALPR-705 PO (11:53)
[2022-07-18] MEDS ORDERED: FURO20 PO (11:53)
[2022-07-18] MEDS ORDERED: ALBU18HF12 IH (11:53)
[2022-07-18] MEDS ORDERED: QUET100T34 PO (11:53)
[2022-07-18] MEDS ORDERED: APIX2.5T PO (11:53)
[2022-07-18] MEDS ORDERED: PANT-31 PO (13:14)
[2022-07-18 15:14] VITALS: BP 122/75
== END 2022-07-18 19:50 | disposition home health service (06) | DRG 870 ==
LOC: EMS 16:55 → ICUN 06-28 06:00 → 5N 06-28 08:47 → ICU 06-29 08:35 → 5N 07-15 07:30
PROVIDERS: ADMIT Internal Medicine; ATTEND Internal Medicine
PROC: 5A0935A Assistance with Respiratory Ventilation, Less than 24 Consecutive Hours, High Flow/Velocity Cannula (ICD-10-PCS; 2022-06-28)
PROC: 05HC33Z Insertion of Infusion Device into Left Basilic Vein, Percutaneous Approach (ICD-10-PCS; 2022-06-28)
PROC: 0BH17EZ Insertion of Endotracheal Airway into Trachea, Via Natural or Artificial Opening (ICD-10-PCS; principal; 2022-06-29)
PROC: 5A1955Z Respiratory Ventilation, Greater than 96 Consecutive Hours (ICD-10-PCS; 2022-06-29)
PROC: 30233N1 Transfusion of Nonautologous Red Blood Cells into Peripheral Vein, Percutaneous Approach (ICD-10-PCS; 2022-07-02)
PROC: 05HB33Z Insertion of Infusion Device into Right Basilic Vein, Percutaneous Approach (ICD-10-PCS; 2022-07-05)
DX: A41.9 Sepsis, unspecified organism (principal); G92.8 Other toxic encephalopathy; J18.9 Pneumonia, unspecified organism; N17.0 Acute kidney failure with tubular necrosis; J96.01 Acute respiratory failure with hypoxia; K25.4 Chronic or unspecified gastric ulcer with hemorrhage; E87.20 Acidosis, unspecified; I82.A11 Acute embolism and thrombosis of right axillary vein; Z20.822 Contact with and (suspected) exposure to COVID-19; Z16.19 Resistance to other specified beta lactam antibiotics; I82.623 Acute embolism and thrombosis of deep veins of upper extremity, bilateral; I82.890 Acute embolism and thrombosis of other specified veins; I82.621 Acute embolism and thrombosis of deep veins of right upper extremity; R65.20 Severe sepsis without septic shock; B96.89 Other specified bacterial agents as the cause of diseases classified elsewhere; D63.8 Anemia in other chronic diseases classified elsewhere; F19.10 Other psychoactive substance abuse, uncomplicated; F32.A Depression, unspecified; F41.9 Anxiety disorder, unspecified; K21.9 Gastro-esophageal reflux disease without esophagitis; J40 Bronchitis, not specified as acute or chronic; F14.10 Cocaine abuse, uncomplicated; Z79.01 Long term (current) use of anticoagulants; Z79.899 Other long term (current) drug therapy; Z86.74 Personal history of sudden cardiac arrest
CPT/HCPCS: 31624; 36245; 36569; 36600; 71045; 71250; 72192; 74150; 74177; 76770; 76937; 78582; 80048; 80053; 80202; 80307; 81001; 81002; 82040; 82271; 82550; 82570; 82805; 82962; 83605; 83690; 83735; 83880; 84100; 84132; 84133; 84145; 84300; 84484; 84540; 84703; 85014; 85018; 85025; 85379; 85384; 85610; 85730; 86635; 86850; 86860; 86870; 86880; 86900; 86901; 86902; 86905; 86906; 86922; 86971; 86999; 87015; 87040; 87070; 87077; 87081; 87086; 87101; 87186; 87205; 87206; 87220; 87252; 87254; 87278; 87305; 87385; 87449; 87804; 88112; 92523; 92526; 92610; 93005; 93306; 93970; 94002; 94003; 94640; 97110; 97116; 97162; 97167; 97530; 97535; 99291; A9539; A9540; C9113; G0378; G0480; J0456; J0692; J1170; J1630; J1644; J1720; J1940; J1956; J2185; J2250; J2270; J2405; J2543; J2704; J3370; J3475; J3480; J3490; J7030; J7050; J7060; J7120; P9016; Q9967; 36415-L1; 36415-TC; J7613; U0003